=== PATIENT | female | born 1940 | race Caucasian/White ===

== ENCOUNTER 2018-08-10 11:04 | Inpatient (IN) | payer OTHER ==
--- NOTE | 2018-08-10 12:05 | PDOC ---
Attending Attestation - HPI HPI: 08/10/18 12:42 The patient is a 78 year old female with a significant past medical history of IDDM, HTN, HLD who presents to the ED with 4 days of generalized weakness, subjective fevers and chills and increasing shortness of breath. She reports one episode of nonbilious/nonbloody emesis today. She states she has been short of breath for about a month which has been progressively worsening over the past couple of weeks. She states she has not been monitoring her sugars but still administering her insulin. She states she has had a poor appetite. The patient denies chest pain, headache and dizziness. The patient denies nausea , diarrhea and constipation. The patient denies dysuria, frequency, urgency and hematuria. Allergies: NKDA <Felicitas Zavala - Last Filed: 08/10/18 12:42> - Resident Resident Name: Saurabh Rangel - ED Attending Attestation I have performed the following: I have examined & evaluated the patient, The case was reviewed & discussed with the resident, I agree w/resident's findings & plan, Exceptions are as noted - Physicial Exam PE: GENERAL: Awake, alert, and fully oriented, in no acute distress. Tachypneic. HEAD: No signs of trauma EYES: PERRLA, EOMI, sclera anicteric, conjunctiva clear ENT: Auricles normal inspection, hearing grossly normal, nares patent, oropharynx clear without exudates. Moist mucosa NECK: Normal ROM, supple, no lymphadenopathy, JVD, or masses LUNGS: Dec breath sounds at R base. Tachypneic. Good air entry L lung alvares. No wheezes. Scattered rhonchi. HEART: Regular rate and rhythm, normal S1 and S2, no murmurs, rubs or gallops ABDOMEN: Soft, nontender, normoactive bowel sounds. No guarding, no rebound. No masses EXTREMITIES: Normal range of motion, no edema. No clubbing or cyanosis. No cords, erythema, or tenderness NEUROLOGICAL: Cranial nerves II through XII grossly intact. Normal speech. Motor and sensation intact SKIN: Warm, Dry, normal turgor, no rashes or lesions noted. - Medical Decision Making Pt with symptomatic pleural effusion, unclear etiology. Attempted drainage in ED but unsuccessful due to large body habitus and poor landmarks. Will admit. <Angela Handley - Last Filed: 08/12/18 10:22> Attestations - Attestations 08/10/18 12:43 Documentation prepared by Felicitas Zavala, acting as medical resident for Angela Handley MD <Felicitas Zavala - Last Filed: 08/10/18 12:42> Procedures - Additional Procedures Additional Procedures: other Progress: 08/10/18 17:26 Attempted placement of pigtail to drain pleural effusion that was resulting in hypoxia. Patient has large body habitus, so ultrasound was used initially to verify anatomy. Area was prepped with chloraprep, draped with sterile drape. Lidocaine local anesthesia. Needle was advanced until contact with rib, then walked up and over. Straw-colored fluid was obtained. Wire was advanced without difficulty. Attempted to dilate, however, it was very difficult to advance the dilator. At this point, it was aborted, as the dilator would not pass (likely due to body habitus). Wire was kept in place. Attempted to remove the fluid instead with a simple thoracentesis kit, however, as the needle was advanced, the fluid was blood-tinged. All attempts were aborted at this point. <Angela Handley - Last Filed: 08/12/18 10:22>
--- NOTE | 2018-08-10 12:36 | PDOC ---
History of Present Illness - General Chief Complaint: Cold Symptoms Stated Complaint: COLD SYMPTOMS Time Seen by Provider: 08/10/18 12:02 History Source: Patient Exam Limitations: No Limitations - History of Present Illness Initial Comments: 08/10/18 12:29 78 yo female pmh of IDDM, HTN, HLD presents to the ED with 4 days of generalized weakness, fevers and chills and worsening SOB. Pt states she may have eaten overdue eggs Monday which may have caused her symptoms, had 1 episode of NB/NB vomiting. Pt admits to over 2 months of exertional SOB with bilateral lower limb edema, denies hx of asthma, COPD or ever requiring home O2. Pt also notes she does not check her BS frequently and has had a poor appetite. Denies abdominal pain, back pain, changes in bowel or bladder habits, recent travel, sick contacts, calf tenderness. Past History - Past Medical History Allergies/Adverse Reactions: Allergies Allergy/AdvReac Type Severity Reaction Status Date / Time No Known Allergies Allergy Verified 08/10/18 11:14 Home Medications: Ambulatory Orders Aspirin 81 mg PO DAILY 08/10/18 Insulin NPH Hum/Reg Insulin Hm [Novolin 70-30 Flexpen] 0 unit SQ ASDIR 08/10/18 Lisinopril [Prinivil] 20 mg PO DAILY 08/10/18 Nebivolol HCl [Bystolic] 10 mg PO DAILY 08/10/18 COPD: No Diabetes: Yes (IDDM) HTN: Yes Hypercholesterolemia: Yes - Immunization History Immunization Up to Date: No - Suicide/Smoking/Psychosocial Hx Smoking History: Never smoked Hx Alcohol Use: No Drug/Substance Use Hx: No Review of Systems - Review of Systems Constitutional: Yes: Chills, Fever Respiratory: Yes: SOB with Exertion Cardiac (ROS): No: Chest Pain ABD/GI: No: Nausea, Vomiting : No: Burning, Dysuria, Discharge Musculoskeletal: No: Back Pain *Physical Exam - Vital Signs Last Vital Signs Temp Pulse Resp BP Pulse Ox 98.0 F 62 22 H 185/59 H 95 08/10/18 11:12 08/10/18 11:46 08/10/18 11:46 08/10/18 11:46 08/10/18 11:46 - Physical Exam General Appearance: Yes: Nourished, Appropriately Dressed, Apparent Distress ( on 3L NC ) HEENT: positive: EOMI Neck: positive: Supple Respiratory/Chest: positive: Crackles (bilateral lower quadrant). negative: Normal Breath Sounds, Respiratory Distress, Accessory Muscle Use Cardiovascular: positive: Regular Rhythm, Regular Rate, S1, S2, Edema ( bilateral 2+ pitting). negative: JVD, Murmur Vascular Pulses: Dorsalis-Pedis (R): 4+, Doralis-Pedis (L): 4+ Gastrointestinal/Abdominal: positive: Normal Bowel Sounds, Soft. negative: Distended, Guarding, Rebound, Tenderness Musculoskeletal: negative: CVA Tenderness Extremity: positive: Normal Capillary Refill. negative: Coldness, Cyanosis Integumentary: positive: Normal Color, Dry, Warm Neurologic: positive: Fully Oriented, Alert, Normal Mood/Affect, Normal Response Moderate Sedation - Procedure Monitoring Vital Signs: Procedure Monitoring Vital Signs Temperature 98.0 F 08/10/18 11:12 Pulse Rate 62 08/10/18 11:46 Respiratory Rate 22 H 08/10/18 11:46 Blood Pressure 185/59 H 08/10/18 11:46 O2 Sat by Pulse Oximetry (%) 95 08/10/18 11:46 ED Treatment Course - LABORATORY CBC & Chemistry Diagram: 08/10/18 12:27 08/10/18 19:07 - RADIOLOGY Radiology Studies Ordered: Category Date Time Status CHEST X-RAY PORTABLE* [RAD] Stat Radiology 08/10/18 12:03 Ordered Medical Decision Making - Medical Decision Making 08/10/18 19:56 78 yo female presents to the ED with over 1 month of worsening SOB on exertion. Vitals 168/88 86% RA, with 3L pt improved to 98 98 temp 66 HR 16 RR CMP shows 6.6 potassium, Renal consulted and states it is likely due to lisinopril recently started CXR shows right lower lobe fluid BNP 1500s Pt likely has new onset CHF and is symptomatic Pigtail cath indicated Pigtail attempted. Pleural fluid drawn from right mid ax line, 5th rib but difficulty met when attempting to pass dilator. Elected to perform pleural tap for symptomatic relief by following guide wire but with advancement, bright pulsitile blood noted in syringe. Needle taken out, compression held and IR consulted. Dr. Nazario states that due to location, very difficult to embolize artery and it will likely tampanode itself. States a CTA chest is indicated and close management for signs of hypotension. Son signed consent for for procedural sedation, pigtail catheter and Contrast study for CTA (low GFR). Made aware of all risks, benefits and alternatives to procedures and all questions answered. CT surgery () aware of pt, states that there only appears to be 700ml of fluid, likely non hemorrhagic in appearance. States if CTA shows extravagation then pt will need to be transferred to tertiary hospital for management Pt stable, not hypotensive in the ED and is Sating 99% on 5L NC ICU aware and accept pt Dr. Paiz aware of pt (told by Dr. Heaven rutherford to admit to hospitalist at this time ) and aware she will be in the ICU 08/10/18 20:[address] Barrera in radiology who states fluid appears non hemorrhagic but another CT would be indicated to assess for increasing fluid *DC/Admit/Observation/Transfer Diagnosis at time of Disposition: Pleural effusion, CHF (congestive heart failure) - Discharge Dispostion Decision to Admit order: Yes - Referrals - Patient Instructions - Post Discharge Activity
[2018-08-10 12:54] LABS: BASO % 0.9 % (0-2.0); EOS % 0.3 % (0-4.5); HEMATOCRIT 33.7 % (32.4-45.2); HEMOGLOBIN 10.8 GM/dL (10.7-15.3); LYMPH % 18.1 % (8-40); MCH 29.3 pg (25.7-33.7); MEAN CELL VOLUME 91.7 fl (80-96); MEAN PLT VOLUME 9.2 fl (7.5-11.1); MONO % 11.7 % (3.8-10.2); PLATELET COUNT 230 K/MM3 (134-434); RBC 3.68 M/mm3 (3.60-5.2); RDW 14.7 % (11.6-15.6); WHITE BLOOD COUNT 9.5 K/mm3 (4.0-10.0)
[2018-08-10 13:24] LABS: ALBUMIN 3.4 g/dl (3.4-5.0); ALK PHOS 118 U/L (45-117); ANION GAP 6 MMOL/L (8-16); BILIRUBIN,TOTAL 0.5 mg/dL (0.2-1); BLOOD UREA NITROGEN 32 mg/dL (7-18); CALCIUM 8.4 mg/dL (8.5-10.1); CHLORIDE 107 mmol/L (98-107); CO2 26 mmol/L (21-32); CREATININE 1.5 mg/dL (0.55-1.3); GLUCOSE,RANDOM 154 mg/dL (74-106); SGOT/AST 23 U/L (15-37); SGPT/ALT 19 U/L (13-61); SODIUM 139 mmol/L (136-145); TOT PROT 7.3 g/dl (6.4-8.2)
[2018-08-10 13:27] LABS: POTASSIUM 6.7 mmol/L (3.5-5.1)
[2018-08-10 13:43] LABS: URINE APPEARANCE CLEAR; URINE BILIRUBIN NEGATIVE (<2.0 mg/dL); URINE COLOR YELLOW; URINE GLUCOSE (UA) NEGATIVE (NEGATIVE); URINE KETONE NEGATIVE (NEGATIVE); URINE LEUK ESTERASE NEGATIVE (NEGATIVE); URINE NITRITE NEGATIVE (NEGATIVE); URINE PROTEIN 2+ (NEGATIVE); URINE UROBILINOGEN NEGATIVE mg/dL (0.2-1.0)
[2018-08-10 14:41] LABS: EPI CELLS RARE /HPF (FEW); URINE HYALINE CAST 5 /lpf
[2018-08-10 15:12] LABS: ALBUMIN 3.5 g/dl (3.4-5.0); ALK PHOS 126 U/L (45-117); ANION GAP 3 MMOL/L (8-16); BILIRUBIN,TOTAL 0.5 mg/dL (0.2-1); BLOOD UREA NITROGEN 32 mg/dL (7-18); CHLORIDE 105 mmol/L (98-107); CO2 30 mmol/L (21-32); CREATININE 1.5 mg/dL (0.55-1.3); GLUCOSE,RANDOM 147 mg/dL (74-106); SGOT/AST 17 U/L (15-37); SGPT/ALT 19 U/L (13-61); SODIUM 138 mmol/L (136-145); TOT PROT 7.6 g/dl (6.4-8.2)
[2018-08-10 15:18] LABS: POTASSIUM 6.6 mmol/L (3.5-5.1)
[2018-08-10] MEDS ORDERED: INSULIN REGULAR HUMAN 100 UNITS/ML *VIAL IVPUSH ONE (15:32)
[2018-08-10] MEDS ORDERED: ALBUTEROL SO4 0.5 % INH SOLN 2.5 MG/0.5 ML VIAL.NEB. NEB ONE (15:38)
[2018-08-10] MEDS ORDERED: DEXTROSE 50%-WATER - 25 GM/50 ML VIAL IVPUSH ONE ×2 (15:39→15:44)
[2018-08-10] MEDS ORDERED: SODIUM BICARBONATE 8.4% 50 MEQ/50 ML DISP.SYRIN IVPUSH ONE (15:42)
[2018-08-10] MEDS ORDERED: SODIUM POLYSTYRENE SULFONATE 15 GM/60 ML BOTTLE PO ONE (15:45)
[2018-08-10] MEDS ORDERED: SODIUM BICARBONATE 8.4% - 50 ML ONE (15:46)
[2018-08-10] MEDS ORDERED: INSULIN REGULAR HUMAN 100 UNITS/ML *VIAL ONE (15:47)
[2018-08-10] MEDS ORDERED: DEXTROSE 50%-WATER - 25 GM/50 ML VIAL ONE (15:49)
[2018-08-10] MEDS ORDERED: ALBUTEROL SO4 0.083% IH SOL 2.5 MG/3 ML VIAL.NEB. NEB ONE (15:49)
[2018-08-10] MEDS ORDERED: SODIUM POLYSTYRENE SULFONATE 15 GM/60 ML BOTTLE ONE (16:07)
[2018-08-10] MEDS ORDERED: PROPOFOL 200 MG/20 ML VIAL IVPUSH ONE (16:27)
--- NOTE | 2018-08-10 18:08 | CONSULT ---
Consult Consult Specialty:: Nephrology Reason for Consultation:: hyperkalemia - History of Present Illness Chief Complaint: shortness of breath History of Present Illness: Pt is a 78 year old female with pmhx of HTN, DM, hyperlipidemia and fatty liver. She presents to the ER with generalized weakness and shortness of breath on ambulation that began about 5 days ago. She is accompanied by her son who assisted with history. She described a viral syndrome that she had on Monday where she had an episode of vomiting and an episode of diarrhea. She was able to tolerate diet since Monday. Pt denies history of CKD. She was found to be hyperkalemic in the ER and I was called to evaluate her. She was on lisinopril 20 mg daily at home. She denies chest pain or palpitations. She was also found to have a right pleural effusion. She denies nsaid use. Pt was also on 25 of hctz. Pt son assisted with meds. - History Source History Provided By: Patient, Family Member, Medical Record - Past Medical History Cardio/Vascular: Yes: HTN Hepatobiliary: Yes: Other (fatty liver) Endocrine: Yes: Diabetes Mellitus - Alcohol/Substance Use Hx Alcohol Use: No - Smoking History Smoking history: Never smoked Home Medications - Allergies Allergies/Adverse Reactions: Allergies Allergy/AdvReac Type Severity Reaction Status Date / Time No Known Allergies Allergy Verified 08/10/18 11:14 - Home Medications Home Medications: Ambulatory Orders Aspirin 81 mg PO DAILY 08/10/18 Insulin NPH Hum/Reg Insulin Hm [Novolin 70-30 Flexpen] 0 unit SQ ASDIR 08/10/18 Lisinopril [Prinivil] 20 mg PO DAILY 08/10/18 Nebivolol HCl [Bystolic] 10 mg PO DAILY 08/10/18 Family Disease History - Family Disease History Family Disease History: Other: Father (laryngeal cancer) Review of Systems - Review of Systems Constitutional: reports: Chills, Loss of Appetite, Weakness Eyes: reports: No Symptoms HENT: reports: No Symptoms Neck: reports: No Symptoms Cardiovascular: reports: No Symptoms. denies: Chest Pain, Palpitations Respiratory: reports: SOB, SOB on Exertion Gastrointestinal: reports: No Symptoms Genitourinary: reports: No Symptoms Musculoskeletal: reports: No Symptoms Integumentary: reports: No Symptoms Neurological: reports: No Symptoms Endocrine: reports: No Symptoms Hematology/Lymphatic: reports: No Symptoms Psychiatric: reports: No Symptoms Physical Exam Vital Signs: Vital Signs Temperature 98.0 F 08/10/18 11:12 Pulse Rate 60 08/10/18 15:02 Respiratory Rate 22 H 08/10/18 15:02 Blood Pressure 177/65 H 08/10/18 15:02 O2 Sat by Pulse Oximetry (%) 94 L 08/10/18 15:02 Constitutional: Yes: Calm Eyes: Yes: Conjunctiva Clear HENT: Yes: Atraumatic Neck: Yes: Supple Cardiovascular: Yes: S1, S2 Respiratory: Yes: On Venti-Mask, Other (decreased right lung sounds) Gastrointestinal: Yes: Soft, Abdomen, Obese Renal/: Yes: WNL Musculoskeletal: Yes: WNL Edema: No Neurological: Yes: Oriented Psychiatric: Yes: Oriented Labs: CBC, BMP 08/10/18 12:27 08/10/18 14:21 Laboratory Tests 08/10/18 08/10/18 08/10/18 12:00 12:27 12:27 Sodium 139 Potassium 6.7 H* BUN 32 H Creatinine 1.5 H Random Glucose 154 H Alkaline Phosphatase B-Natriuretic Peptide 1552.0 H Urine Color Yellow Urine Protein 2+ H Urine Blood Negative Influenza A (Rapid) Negative Influenza B (Rapid) Negative 08/10/18 14:21 Sodium 138 Potassium 6.6 H* BUN 32 H Creatinine 1.5 H Random Glucose 147 H Alkaline Phosphatase 126 H B-Natriuretic Peptide Urine Color Urine Protein Urine Blood Influenza A (Rapid) Influenza B (Rapid) Imaging - Results Chest X-ray: Report Reviewed Problem List - Problems (1) Hyperkalemia Code(s): E87.5 - HYPERKALEMIA (2) Diabetes mellitus Code(s): E11.9 - TYPE 2 DIABETES MELLITUS WITHOUT COMPLICATIONS (3) HTN (hypertension) Code(s): I10 - ESSENTIAL (PRIMARY) HYPERTENSION Assessment/Plan Laboratory Tests 08/10/18 12:27 B-Natriuretic Peptide 1552.0 H Impression 1. hyperkalemia 2. ckd vs dona - unclear baseline dam attendant 3. pleural effusion 4. htn 5. DM 6. hx fatty liver Plan - potassium treated medically in ER - follow repeat bmp - stop lininopril for now - follow ct scan of the chest - agree with ICU admission - monitor pulse ox - can give lasix instead of thiazide - keep on tele monitor - pulmonary eval
--- NOTE | 2018-08-10 19:42 | CONSULT ---
Consultation: REQUESTING PROVIDER: CONSULT REQUEST: We have been asked to medically evaluate this patient for ( specify). HISTORY OF PRESENT ILLNESS: REVIEW OF SYSTEMS: CONSTITUTIONAL: Absent: fever, chills, diaphoresis, generalized weakness, malaise, loss of appetite, weight change HEENT: Absent: rhinorrhea, nasal congestion, throat pain, throat swelling, difficulty swallowing, mouth swelling, ear pain, eye pain, visual changes CARDIOVASCULAR: Absent: chest pain, syncope, palpitations, irregular heart rate, lightheadedness , peripheral edema RESPIRATORY: Absent: cough, shortness of breath, dyspnea with exertion, orthopnea, wheezing, stridor, hemoptysis GASTROINTESTINAL: Absent: abdominal pain, abdominal distension, nausea, vomiting, diarrhea, constipation, melena, hematochezia GENITOURINARY: Absent: dysuria, frequency, urgency, hesitancy, hematuria, flank pain, genital pain MUSCULOSKELETAL: Absent: myalgia, arthralgia, joint swelling, back pain, neck pain SKIN: Absent: rash, itching, pallor HEMATOLOGIC/IMMUNOLOGIC: Absent: easy bleeding, easy bruising, lymphadenopathy, frequent infections ENDOCRINE: Absent: unexplained weight gain, unexplained weight loss, heat intolerance, cold intolerance NEUROLOGIC: Absent: headache, focal weakness or paresthesias, dizziness, unsteady gait, seizure, mental status changes, bladder or bowel incontinence PSYCHIATRIC: Absent: anxiety, depression, suicidal or homicidal ideation, hallucinations. PHYSICAL EXAMINATION Vital Signs - 24 hr 08/10/18 08/10/18 08/10/18 11:12 11:46 15:02 Temperature 98.0 F Pulse Rate 66 Pulse Rate [ 62 60 Apical] Pulse Rate [ Left Upper Arm] Respiratory 16 22 H 22 H Rate Respiratory Rate [Left Upper Arm] Blood Pressure 168/48 L Blood Pressure [Left Upper Arm ] Blood Pressure 185/59 H 177/65 H [Right Arm] O2 Sat by Pulse 86 L 95 94 L Oximetry (%) O2 Sat by Pulse Oximetry (%) [ Left Upper Arm] 08/10/18 08/10/18 08/10/18 16:35 16:45 16:55 Temperature Pulse Rate Pulse Rate [ 66 Apical] Pulse Rate [ 77 75 Left Upper Arm] Respiratory Rate Respiratory 20 18 Rate [Left Upper Arm] Blood Pressure Blood Pressure 133/86 170/64 [Left Upper Arm ] Blood Pressure 138/64 [Right Arm] O2 Sat by Pulse 100 Oximetry (%) O2 Sat by Pulse 94 L Oximetry (%) [ Left Upper Arm] 08/10/18 08/10/18 17:05 19:28 Temperature Pulse Rate Pulse Rate [ 67 70 Apical] Pulse Rate [ Left Upper Arm] Respiratory 22 H 80 H Rate Respiratory Rate [Left Upper Arm] Blood Pressure Blood Pressure [Left Upper Arm ] Blood Pressure 156/87 152/58 L [Right Arm] O2 Sat by Pulse 100 94 L Oximetry (%) O2 Sat by Pulse Oximetry (%) [ Left Upper Arm] GENERAL: Awake, alert, and fully oriented, in no acute distress. HEAD: Normal with no signs of trauma. EYES: Pupils equal, round and reactive to light, extraocular movements intact, sclera anicteric, conjunctiva clear. No lid lag. EARS, NOSE, THROAT: Ears normal, nares patent, oropharynx clear without exudates. Moist mucous membranes. NECK: Normal range of motion, supple without lymphadenopathy, JVD, or masses. LUNGS: Breath sounds equal, clear to auscultation bilaterally. No wheezes, and no crackles. No accessory muscle use. HEART: Regular rate and rhythm, normal S1 and S2 without murmur, rub or gallop. ABDOMEN: Soft, nontender, not distended, normoactive bowel sounds, no guarding, no rebound, no masses. No hepatomegaly or splenomegaly. MUSCULOSKELETAL: Normal range of motion at all joints. No bony deformities or tenderness. No CVA tenderness. UPPER EXTREMITIES: 2+ pulses, warm, well-perfused. No cyanosis. No clubbing. Cap refill <2 seconds. No peripheral edema. LOWER EXTREMITIES: 2+ pulses, warm, well-perfused. No calf tenderness. No peripheral edema. NEUROLOGICAL: Cranial nerves II-XII intact. Normal speech. Normal gait. PSYCHIATRIC: Cooperative. Good eye contact. Appropriate mood and affect. SKIN: Warm, dry, normal turgor, no rashes or lesions noted. Laboratory Results - last 24 hr 08/10/18 08/10/18 08/10/18 12:00 12:27 12:27 WBC 9.5 RBC 3.68 Hgb 10.8 Hct 33.7 MCV 91.7 MCH 29.3 MCHC 32.0 RDW 14.7 Plt Count 230 MPV 9.2 Absolute Neuts (auto) 6.6 Neutrophils % 69.0 Lymphocytes % 18.1 Monocytes % 11.7 H Eosinophils % 0.3 Basophils % 0.9 Nucleated RBC % 0 Sodium Potassium Chloride Carbon Dioxide Anion Gap BUN Creatinine Creat Clearance w eGFR Random Glucose Lactic Acid Calcium Total Bilirubin AST ALT Alkaline Phosphatase Creatine Kinase Troponin I B-Natriuretic Peptide Total Protein Albumin Urine Color Yellow Urine Appearance Clear Urine pH 6.0 Ur Specific [place] 1.014 Urine Protein 2+ H Urine Glucose (UA) Negative Urine Ketones Negative Urine Blood Negative Urine Nitrite Negative Urine Bilirubin Negative Urine Urobilinogen Negative Ur Leukocyte Esterase Negative Urine WBC (Auto) <1 Urine RBC (Auto) <1 Ur Epithelial Cells Rare Hyaline Casts 5 Influenza A (Rapid) Negative Influenza B (Rapid) Negative 08/10/18 08/10/18 08/10/18 12:27 13:21 14:21 WBC RBC Hgb Hct MCV MCH MCHC RDW Plt Count MPV Absolute Neuts (auto) Neutrophils % Lymphocytes % Monocytes % Eosinophils % Basophils % Nucleated RBC % Sodium 139 138 Potassium 6.7 H* 6.6 H* Chloride 107 105 Carbon Dioxide 26 30 Anion Gap 6 L 3 L BUN 32 H 32 H Creatinine 1.5 H 1.5 H Creat Clearance w eGFR 33.76 33.76 Random Glucose 154 H 147 H Lactic Acid 1.6 Calcium 8.4 L 9.0 Total Bilirubin 0.5 0.5 AST 23 17 ALT 19 19 Alkaline Phosphatase 118 H 126 H Creatine Kinase 72 Troponin I < 0.02 B-Natriuretic Peptide 1552.0 H Total Protein 7.3 7.6 Albumin 3.4 3.5 Urine Color Urine Appearance Urine pH Ur Specific [place] Urine Protein Urine Glucose (UA) Urine Ketones Urine Blood Urine Nitrite Urine Bilirubin Urine Urobilinogen Ur Leukocyte Esterase Urine WBC (Auto) Urine RBC (Auto) Ur Epithelial Cells Hyaline Casts Influenza A (Rapid) Influenza B (Rapid) Active Medications Generic Name Dose Route Start Last Admin Trade Name Freq PRN Reason Stop Dose Admin Chlorhexidine Gluconate 1 applic 08/10/18 22:00 Hibiclens For Decolonization - TP HS [facility] Heparin Sodium (Porcine) 5,000 unit 08/11/18 06:00 Heparin - SQ TID [facility] Mupirocin 1 applic 08/10/18 22:00 Bactroban Ointment (For Decolonization) - NS 08/15/18 21:59 BID [facility] ASSESSMENT/PLAN: Dispo: We will continue to follow the patient. Thank you for this consultative opportunity.
--- NOTE | 2018-08-10 19:52 | HP ---
Admitting History and Physical - Primary Care Physician PCP: Sho Duarte - Admission Chief Complaint: SOB, Generalized Weakness History of Present Illness: This is a 78 y/o woman with a PMHx of HTN, DM, Hyperlipidemia, Fatty Liver. Who presents to the ED with generalized weakness and shortness of breath on ambulation that began about 5 days ago. She is accompanied by her son who assisted with history. She described a viral syndrome that she had on Monday where she had an episode of vomiting and an episode of diarrhea. She was able to tolerate diet since Monday. Pt denies history of CKD. She was found to be hyperkalemic in the ER and I was called to evaluate her. She was on lisinopril 20 mg daily at home. She denies chest pain or palpitations. She was also found to have a right pleural effusion. She denies nsaid use. Pt was also on 25 of hctz. Pt son assisted with meds. History Source: Family Member Limitations to Obtaining History: Clinical Condition - Past Medical History Cardiovascular: Yes: HTN, Hyperlipdemia Hepatobiliary: Yes: Other (fatty liver) Endocrine: Yes: Diabetes Mellitus - Smoking History Smoking history: Never smoked - Alcohol/Substance Use Hx Alcohol Use: No History of Substance Use: reports: None - Social History Usual Living Arrangement: Yes: With Child ADL: Family Assistance History of Recent Travel: No Home Medications - Allergies Allergies/Adverse Reactions: Allergies Allergy/AdvReac Type Severity Reaction Status Date / Time No Known Allergies Allergy Verified 08/10/18 11:14 - Home Medications Home Medications: Ambulatory Orders Aspirin 81 mg PO DAILY 08/10/18 Insulin NPH Hum/Reg Insulin Hm [Novolin 70-30 Flexpen] 0 unit SQ ASDIR 08/10/18 Lisinopril [Prinivil] 20 mg PO DAILY 08/10/18 Nebivolol HCl [Bystolic] 10 mg PO DAILY 08/10/18 Family Disease History - Family Disease History Family Disease History: Other: Father (laryngeal cancer) Review of Systems - Review of Systems Constitutional: reports: Weakness Eyes: reports: No Symptoms HENT: reports: No Symptoms Neck: reports: No Symptoms Cardiovascular: reports: Shortness of Breath Respiratory: reports: SOB, SOB on Exertion Gastrointestinal: reports: No Symptoms Genitourinary: reports: No Symptoms Breasts: reports: No Symptoms Reported Musculoskeletal: reports: No Symptoms Integumentary: reports: No Symptoms Neurological: reports: No Symptoms Endocrine: reports: No Symptoms Hematology/Lymphatic: reports: No Symptoms Psychiatric: reports: No Symptoms Physical Examination Vital Signs: Vital Signs Temperature 98.0 F 08/10/18 11:12 Pulse Rate 70 08/10/18 19:28 Respiratory Rate 80 H 08/10/18 19:28 Blood Pressure 152/58 L 08/10/18 19:28 O2 Sat by Pulse Oximetry (%) 94 L 08/10/18 19:28 Constitutional: Yes: No Distress, Calm Eyes: Yes: WNL, Conjunctiva Clear, EOM Intact, PERRL HENT: Yes: WNL, Atraumatic, Normocephalic Neck: Yes: WNL, Supple, Trachea Midline Cardiovascular: Yes: WNL, Regular Rate and Rhythm, S1, S2 Respiratory: Yes: Diminished, On Nasal O2, SOB, SOB on Exertion Gastrointestinal: Yes: WNL, Normal Bowel Sounds, Soft, Abdomen, Obese Renal/: Yes: WNL Breast(s): Yes: WNL Musculoskeletal: Yes: WNL Extremities: Yes: WNL Edema: No Peripheral Pulses WNL: Yes Neurological: Yes: WNL, Alert, Oriented, Cran Nerves II-XII Intact ...Motor Strength: WNL Psychiatric: Yes: WNL, Alert, Oriented Labs: CBC, BMP 08/10/18 12:27 Laboratory Results - last 24 hr 08/10/18 08/10/18 08/10/18 12:00 12:27 12:27 WBC 9.5 RBC 3.68 Hgb 10.8 Hct 33.7 MCV 91.7 MCH 29.3 MCHC 32.0 RDW 14.7 Plt Count 230 MPV 9.2 Absolute Neuts (auto) 6.6 Neutrophils % 69.0 Lymphocytes % 18.1 Monocytes % 11.7 H Eosinophils % 0.3 Basophils % 0.9 Nucleated RBC % 0 Sodium Potassium Chloride Carbon Dioxide Anion Gap BUN Creatinine Creat Clearance w eGFR POC Glucometer Random Glucose Lactic Acid Calcium Total Bilirubin AST ALT Alkaline Phosphatase Creatine Kinase Troponin I B-Natriuretic Peptide Total Protein Albumin Urine Color Yellow Urine Appearance Clear Urine pH 6.0 Ur Specific [place] 1.014 Urine Protein 2+ H Urine Glucose (UA) Negative Urine Ketones Negative Urine Blood Negative Urine Nitrite Negative Urine Bilirubin Negative Urine Urobilinogen Negative Ur Leukocyte Esterase Negative Urine WBC (Auto) <1 Urine RBC (Auto) <1 Ur Epithelial Cells Rare Hyaline Casts 5 Influenza A (Rapid) Negative Influenza B (Rapid) Negative 08/10/18 08/10/18 08/10/18 12:27 13:21 14:21 WBC RBC Hgb Hct MCV MCH MCHC RDW Plt Count MPV Absolute Neuts (auto) Neutrophils % Lymphocytes % Monocytes % Eosinophils % Basophils % Nucleated RBC % Sodium 139 138 Potassium 6.7 H* 6.6 H* Chloride 107 105 Carbon Dioxide 26 30 Anion Gap 6 L 3 L BUN 32 H 32 H Creatinine 1.5 H 1.5 H Creat Clearance w eGFR 33.76 33.76 POC Glucometer Random Glucose 154 H 147 H Lactic Acid 1.6 Calcium 8.4 L 9.0 Total Bilirubin 0.5 0.5 AST 23 17 ALT 19 19 Alkaline Phosphatase 118 H 126 H Creatine Kinase 72 Troponin I < 0.02 B-Natriuretic Peptide 1552.0 H Total Protein 7.3 7.6 Albumin 3.4 3.5 Urine Color Urine Appearance Urine pH Ur Specific [place] Urine Protein Urine Glucose (UA) Urine Ketones Urine Blood Urine Nitrite Urine Bilirubin Urine Urobilinogen Ur Leukocyte Esterase Urine WBC (Auto) Urine RBC (Auto) Ur Epithelial Cells Hyaline Casts Influenza A (Rapid) Influenza B (Rapid) 08/10/18 08/10/18 19:07 21:10 WBC RBC Hgb Hct MCV MCH MCHC RDW Plt Count MPV Absolute Neuts (auto) Neutrophils % Lymphocytes % Monocytes % Eosinophils % Basophils % Nucleated RBC % Sodium 141 Potassium 5.1 Chloride 107 Carbon Dioxide 28 Anion Gap 6 L BUN 32 H Creatinine 1.4 H Creat Clearance w eGFR 36.56 POC Glucometer 203 Random Glucose 179 H Lactic Acid Calcium 8.1 L Total Bilirubin 0.5 AST 15 ALT 16 Alkaline Phosphatase 112 Creatine Kinase Troponin I B-Natriuretic Peptide Total Protein 6.9 Albumin 3.1 L Urine Color Urine Appearance Urine pH Ur Specific [place] Urine Protein Urine Glucose (UA) Urine Ketones Urine Blood Urine Nitrite Urine Bilirubin Urine Urobilinogen Ur Leukocyte Esterase Urine WBC (Auto) Urine RBC (Auto) Ur Epithelial Cells Hyaline Casts Influenza A (Rapid) Influenza B (Rapid) Current Medications Generic Name Dose Route Start Last Admin Trade Name Freq PRN Reason Stop Dose Admin Chlorhexidine Gluconate 1 applic 08/10/18 22:00 08/10/18 21:32 Hibiclens For Decolonization - TP 1 applic HS DEREK Administration Heparin Sodium (Porcine) 5,000 unit 08/11/18 06:00 08/11/18 06:08 Heparin - SQ 5,000 unit TID DEREK Administration Sodium Chloride 1,000 mls @ 75 mls/hr 08/10/18 20:45 08/10/18 21:30 Normal Saline - IV 75 mls/hr ASDIR DEREK Administration Insulin Aspart 1 vial 08/10/18 21:00 08/11/18 02:49 Novolog Vial Sliding Scale - SQ 4 units Q6H DEREK Administration Protocol Mupirocin 1 applic 08/10/18 22:00 08/10/18 21:31 Bactroban Ointment (For Decolonization) - NS 08/15/18 21:59 1 applic BID DEREK Administration Nebivolol 10 mg 08/11/18 10:00 Bystolic - PO DAILY DEREK Imaging - Results Chest X-ray: Report Reviewed, Image Reviewed Cat Scan: Report Reviewed, Image Reviewed EKG: Image Reviewed Problem List - Problems (1) Pleural effusion Code(s): J90 - PLEURAL EFFUSION, NOT ELSEWHERE CLASSIFIED (2) CHF (congestive heart failure) Code(s): I50.9 - HEART FAILURE, UNSPECIFIED (3) Hyperkalemia Code(s): E87.5 - HYPERKALEMIA (4) CYNTHIA (acute kidney injury) Code(s): N17.9 - ACUTE KIDNEY FAILURE, UNSPECIFIED (5) Diabetes mellitus Code(s): E11.9 - TYPE 2 DIABETES MELLITUS WITHOUT COMPLICATIONS (6) HTN (hypertension) Code(s): I10 - ESSENTIAL (PRIMARY) HYPERTENSION Assessment/Plan This is a 78 y/o woman PMHx of HTN, HLD, DM, Fatty Liver admitted to ICU for Pleural Effusion, CHF, Hyperkalemia, CYNTHIA for further evaluation of their emergent condition Plan: 1. Pulmonary: Pleural Effusion CHF Admit ICU Cardiac monitoring O2 Chest Xray- Moderate Right and Left Pleural Effusions Will need pleural cath placed- unsuccessful in ED Appreciate Pulmonology consult 2. Cardiovascular: Hyperkalemia HTN HLD Likely secondary to CYNTHIA Hyperkalemic Protocol given in ED K- 6.7~6.6 now 5.1 EKG reviewed no peaked T waves Calcium corrected 8.8 Monitor BMP Consider Cardiology consult Hold Lisinopril Continue Bystolic with parameters 3. Nephro: CYNTHIA Cr 1.5 Nephrology following Hold Lisinopril Monitor BMP 4. Endocrine: Diabetes Mellitus stable BGMs ISS with meals Monitor renal function 5. GI: Fatty Liver Continue to monitor and treat with interventions accordingly FEN Replete lytes prn NPO after midnight DVT ppx OOB SCDs Heparin SQ Dispo: Requires Inpatient Care 3. Visit type - Emergency Visit Emergency Visit: Yes ED Registration Date: 08/10/18 Care time: The patient presented to the Emergency Department on the above date and was hospitalized for further evaluation of their emergent condition. - New Patient This patient is new to me today: Yes Date on this admission: 08/10/18 - Critical Care Critical Care patient: Yes Total Critical Care Time (in minutes): 32 Critical Care Statement: The care of this patient involved high complexity decision making to prevent further life threatening deterioration of the patient 's condition and/or to evaluate & treat vital organ system(s) failure or risk of failure.
[2018-08-10 20:00] LABS: ALBUMIN 3.1 g/dl (3.4-5.0); ALK PHOS 112 U/L (45-117); ANION GAP 6 MMOL/L (8-16); BILIRUBIN,TOTAL 0.5 mg/dL (0.2-1); BLOOD UREA NITROGEN 32 mg/dL (7-18); CALCIUM 8.1 mg/dL (8.5-10.1); CHLORIDE 107 mmol/L (98-107); CO2 28 mmol/L (21-32); CREATININE 1.4 mg/dL (0.55-1.3); GLUCOSE,RANDOM 179 mg/dL (74-106); POTASSIUM 5.1 mmol/L (3.5-5.1); SGOT/AST 15 U/L (15-37); SGPT/ALT 16 U/L (13-61); SODIUM 141 mmol/L (136-145); TOT PROT 6.9 g/dl (6.4-8.2)
--- NOTE | 2018-08-10 20:15 | CONSULT ---
Consultation: REQUESTING PROVIDER: Dr. Handley CONSULT REQUEST: We have been asked to medically evaluate this patient for frequent monitoring of possible hematoma. HISTORY OF PRESENT ILLNESS: 78 year old palestinian-speaking female with a history of diabetes, hypertension, hyperlipidemia and fatty liver who came to the emergency room with SOB on exertion beginning 5 days ago. Patient's son reported to me that she felt badly on Monday, when she vomited once but was able to tolerate diet since Monday. He reported to me, however, that she has had progressive shortness of breath on exertion for more than 2 weeks. Patient has not had a history of cancer or CHF. Patient denies orthopnea or swelling in her legs. Denies sick contacts or recent travel. Denies ever smoking or drinking alcohol. In ED, patient was found to have a large right sided pleural effusion, which they subsequently attempted to drain with a pigtail catheter. Following insertion, minimal drainage was obtained and there was some concern of a possible hematoma. The pigtail was removed and she received a CTA. Additionally, in the ED patient was hyperkalemic to >6 and treated. with insulin /D50. When I examined patient, she denied any symptoms of chest pain, shortness of breath, nausea, vomiting, diarrhea,fevers, chills, abdominal pain, palpitations. REVIEW OF SYSTEMS: CONSTITUTIONAL: Absent: fever, chills, diaphoresis, generalized weakness, malaise, loss of appetite, weight change HEENT: Absent: rhinorrhea, nasal congestion, throat pain, throat swelling, difficulty swallowing, mouth swelling, ear pain, eye pain, visual changes CARDIOVASCULAR: Absent: chest pain, syncope, palpitations, irregular heart rate, lightheadedness , peripheral edema RESPIRATORY: Absent: cough, shortness of breath, dyspnea with exertion, orthopnea, wheezing, stridor, hemoptysis GASTROINTESTINAL: Absent: abdominal pain, abdominal distension, nausea, vomiting, diarrhea, constipation, melena, hematochezia GENITOURINARY: Absent: dysuria, frequency, urgency, hesitancy, hematuria, flank pain, genital pain MUSCULOSKELETAL: Absent: myalgia, arthralgia, joint swelling, back pain, neck pain SKIN: Absent: rash, itching, pallor HEMATOLOGIC/IMMUNOLOGIC: Absent: easy bleeding, easy bruising, lymphadenopathy, frequent infections ENDOCRINE: Absent: unexplained weight gain, unexplained weight loss, heat intolerance, cold intolerance NEUROLOGIC: Absent: headache, focal weakness or paresthesias, dizziness, unsteady gait, seizure, mental status changes, bladder or bowel incontinence PSYCHIATRIC: Absent: anxiety, depression, suicidal or homicidal ideation, hallucinations. PHYSICAL EXAMINATION Vital Signs - 24 hr 08/10/18 08/10/18 08/10/18 11:12 11:46 15:02 Temperature 98.0 F Pulse Rate 66 Pulse Rate [ 62 60 Apical] Pulse Rate [ Left Upper Arm] Respiratory 16 22 H 22 H Rate Respiratory Rate [Left Upper Arm] Blood Pressure 168/48 L Blood Pressure [Left Upper Arm ] Blood Pressure 185/59 H 177/65 H [Right Arm] O2 Sat by Pulse 86 L 95 94 L Oximetry (%) O2 Sat by Pulse Oximetry (%) [ Left Upper Arm] 08/10/18 08/10/18 08/10/18 16:35 16:45 16:55 Temperature Pulse Rate Pulse Rate [ 66 Apical] Pulse Rate [ 77 75 Left Upper Arm] Respiratory Rate Respiratory 20 18 Rate [Left Upper Arm] Blood Pressure Blood Pressure 133/86 170/64 [Left Upper Arm ] Blood Pressure 138/64 [Right Arm] O2 Sat by Pulse 100 Oximetry (%) O2 Sat by Pulse 94 L Oximetry (%) [ Left Upper Arm] 08/10/18 08/10/18 17:05 19:28 Temperature Pulse Rate Pulse Rate [ 67 70 Apical] Pulse Rate [ Left Upper Arm] Respiratory 22 H 80 H Rate Respiratory Rate [Left Upper Arm] Blood Pressure Blood Pressure [Left Upper Arm ] Blood Pressure 156/87 152/58 L [Right Arm] O2 Sat by Pulse 100 94 L Oximetry (%) O2 Sat by Pulse Oximetry (%) [ Left Upper Arm] GENERAL: A&Ox3, no acute distress EYES: PERRLA, EOMI ENT: Moist mucus membranes NECK: No JVD LUNGS: decreased breath sounds in the RLL, otherwise clear to auscultation HEART: mildly tachycardic, 1-2+ systolic murmur noted in the 2nd R intercostal space ABDOMEN: Soft, nontender, BS present MUSCULOSKELETAL: No CVA Tenderness, puncture wound from previous pigtail insertion noted on R sided chest wall mid-axillary region EXTREMITIES: 2+ pulses, no edema. NEUROLOGICAL: Cranial nerves II-XII intact. No neurological deficits noted. Laboratory Results - last 24 hr 08/10/18 08/10/18 08/10/18 12:00 12:27 12:27 WBC 9.5 RBC 3.68 Hgb 10.8 Hct 33.7 MCV 91.7 MCH 29.3 MCHC 32.0 RDW 14.7 Plt Count 230 MPV 9.2 Absolute Neuts (auto) 6.6 Neutrophils % 69.0 Lymphocytes % 18.1 Monocytes % 11.7 H Eosinophils % 0.3 Basophils % 0.9 Nucleated RBC % 0 Sodium Potassium Chloride Carbon Dioxide Anion Gap BUN Creatinine Creat Clearance w eGFR Random Glucose Lactic Acid Calcium Total Bilirubin AST ALT Alkaline Phosphatase Creatine Kinase Troponin I B-Natriuretic Peptide Total Protein Albumin Urine Color Yellow Urine Appearance Clear Urine pH 6.0 Ur Specific [place] 1.014 Urine Protein 2+ H Urine Glucose (UA) Negative Urine Ketones Negative Urine Blood Negative Urine Nitrite Negative Urine Bilirubin Negative Urine Urobilinogen Negative Ur Leukocyte Esterase Negative Urine WBC (Auto) <1 Urine RBC (Auto) <1 Ur Epithelial Cells Rare Hyaline Casts 5 Influenza A (Rapid) Negative Influenza B (Rapid) Negative 08/10/18 08/10/18 08/10/18 12:27 13:21 14:21 WBC RBC Hgb Hct MCV MCH MCHC RDW Plt Count MPV Absolute Neuts (auto) Neutrophils % Lymphocytes % Monocytes % Eosinophils % Basophils % Nucleated RBC % Sodium 139 138 Potassium 6.7 H* 6.6 H* Chloride 107 105 Carbon Dioxide 26 30 Anion Gap 6 L 3 L BUN 32 H 32 H Creatinine 1.5 H 1.5 H Creat Clearance w eGFR 33.76 33.76 Random Glucose 154 H 147 H Lactic Acid 1.6 Calcium 8.4 L 9.0 Total Bilirubin 0.5 0.5 AST 23 17 ALT 19 19 Alkaline Phosphatase 118 H 126 H Creatine Kinase 72 Troponin I < 0.02 B-Natriuretic Peptide 1552.0 H Total Protein 7.3 7.6 Albumin 3.4 3.5 Urine Color Urine Appearance Urine pH Ur Specific [place] Urine Protein Urine Glucose (UA) Urine Ketones Urine Blood Urine Nitrite Urine Bilirubin Urine Urobilinogen Ur Leukocyte Esterase Urine WBC (Auto) Urine RBC (Auto) Ur Epithelial Cells Hyaline Casts Influenza A (Rapid) Influenza B (Rapid) 08/10/18 19:07 WBC RBC Hgb Hct MCV MCH MCHC RDW Plt Count MPV Absolute Neuts (auto) Neutrophils % Lymphocytes % Monocytes % Eosinophils % Basophils % Nucleated RBC % Sodium 141 Potassium 5.1 Chloride 107 Carbon Dioxide 28 Anion Gap 6 L BUN 32 H Creatinine 1.4 H Creat Clearance w eGFR 36.56 Random Glucose 179 H Lactic Acid Calcium 8.1 L Total Bilirubin 0.5 AST 15 ALT 16 Alkaline Phosphatase 112 Creatine Kinase Troponin I B-Natriuretic Peptide Total Protein 6.9 Albumin 3.1 L Urine Color Urine Appearance Urine pH Ur Specific [place] Urine Protein Urine Glucose (UA) Urine Ketones Urine Blood Urine Nitrite Urine Bilirubin Urine Urobilinogen Ur Leukocyte Esterase Urine WBC (Auto) Urine RBC (Auto) Ur Epithelial Cells Hyaline Casts Influenza A (Rapid) Influenza B (Rapid) Active Medications Generic Name Dose Route Start Last Admin Trade Name Freq PRN Reason Stop Dose Admin Chlorhexidine Gluconate 1 applic 08/10/18 22:00 Hibiclens For Decolonization - TP HS [facility] Heparin Sodium (Porcine) 5,000 unit 08/11/18 06:00 Heparin - SQ TID [facility] Mupirocin 1 applic 08/10/18 22:00 Bactroban Ointment (For Decolonization) - NS 08/15/18 21:59 BID [facility] ASSESSMENT/PLAN: 78 year old female with a history of diabetes, hypertension, hyperlipidemia and fatty liver who came to the emergency room with SOB on exertion and admitted to ICU for monitoring following pigtail catheter insertion and monitoring of blood pressure due to concern for hematoma Neurological: no acute issues -monitor for neurological changes Cardiovascular: patient was hypertensive on admission -will hold lisinopril due to kidney -will use lasix instead of HCTZ -continue home meds -echo Pulmonary: -patient has large pleural effusion even s/p pigtail insertion -should get fluid analysis -f/u CTA read, does not initially appear hemorrhagic -will likely need CT surg evaluation in AM Renal -Patient arrived hyperkalemia to >6 and she was given insulin/D50 -Repeat potassium improved, monitor BMP in Am -hold lisinopril -per renal consult, may use lasix to diurese instead of HCTZ Endocrine: -DM treatment with sliding scale q6h while NPO -BGM q6h -if made to eat, switch to ACHS FEN -no standing fluids while on lasix -check potassium in AM -NPO for now in case CT surg sees Prophylaxis -SCDs Dispo: We will continue to follow the patient. Thank you for this consultative opportunity. Visit type - Emergency Visit Emergency Visit: Yes ED Registration Date: 08/10/18 Care time: The patient presented to the Emergency Department on the above date and was hospitalized for further evaluation of their emergent condition. - New Patient This patient is new to me today: Yes Date on this admission: 08/10/18 - Critical Care Critical Care patient: Yes Total Critical Care Time (in minutes): 39 Critical Care Statement: The care of this patient involved high complexity decision making to prevent further life threatening deterioration of the patient 's condition and/or to evaluate & treat vital organ system(s) failure or risk of failure.
[2018-08-10] MEDS ORDERED: SODIUM CHLORIDE 1,000 ML IV SCH (20:45)
[2018-08-10] MEDS: INSULIN SLIDING SCALE (NOVOLOG) 1 VIAL SQ SCH (21:30)
[2018-08-10] MEDS: MUPIROCIN 2% TOPICAL OINTMENT FOR DECOLONIZATION NS SCH (21:31)
[2018-08-10] MEDS: CHLORHEXIDINE GLUCONATE 4% CLEANSER FOR DECOLONIZATION TP SCH (21:32)
--- NOTE | 2018-08-11 00:10 | PN ---
Progress Note (short form) - Note Progress Note: Laboratory Tests 08/10/18 19:07 Sodium 141 Potassium 5.1 Chloride 107 Carbon Dioxide 28 BUN 32 H Creatinine 1.[address] Shepherd Problem List - Problems (1) Hyperkalemia Code(s): E87.5 - HYPERKALEMIA (2) Diabetes mellitus Code(s): E11.9 - TYPE 2 DIABETES MELLITUS WITHOUT COMPLICATIONS (3) HTN (hypertension) Code(s): I10 - ESSENTIAL (PRIMARY) HYPERTENSION
[2018-08-11] MEDS: INSULIN SLIDING SCALE (NOVOLOG) 1 VIAL SQ SCH ×4 (02:49→18:21)
[2018-08-11] MEDS: HEPARIN NA (PORCINE) 5,000 UNITS/ML 1ML VIAL SQ SCH ×2 (06:08→14:13)
[2018-08-11 07:16] LABS: BASO % 0.4 % (0-2.0); EOS % 1.2 % (0-4.5); HEMATOCRIT 29.7 % (32.4-45.2); HEMOGLOBIN 9.7 GM/dL (10.7-15.3); LYMPH % 19.2 % (8-40); MCHC 32.7 g/dl (32.0-36.0); MEAN CELL VOLUME 91.8 fl (80-96); MEAN PLT VOLUME 9.5 fl (7.5-11.1); MONO % 16.6 % (3.8-10.2); NEUT % 62.6 % (42.8-82.8); PLATELET COUNT 207 K/MM3 (134-434); RBC 3.24 M/mm3 (3.60-5.2); RDW 14.5 % (11.6-15.6); WHITE BLOOD COUNT 9.4 K/mm3 (4.0-10.0)
[2018-08-11 07:30] LABS: ALBUMIN 2.8 g/dl (3.4-5.0); ALK PHOS 104 U/L (45-117); ANION GAP 3 MMOL/L (8-16); BILIRUBIN,TOTAL 0.5 mg/dL (0.2-1); BLOOD UREA NITROGEN 29 mg/dL (7-18); CALCIUM 7.7 mg/dL (8.5-10.1); CHLORIDE 106 mmol/L (98-107); CO2 33 mmol/L (21-32); CREATININE 1.2 mg/dL (0.55-1.3); GLUCOSE,RANDOM 146 mg/dL (74-106); MAGNESIUM 2.2 mg/dL (1.8-2.4); POTASSIUM 4.6 mmol/L (3.5-5.1); SGOT/AST 11 U/L (15-37); SGPT/ALT 15 U/L (13-61); SODIUM 142 mmol/L (136-145); TOT PROT 6.4 g/dl (6.4-8.2)
[2018-08-11 07:38] LABS: INR 1.12 (0.83-1.09); PROTHROMBIN TIME (PATIENT) 13.2 SEC (9.7-13.0)
[2018-08-11] MEDS ORDERED: NEBIVOLOL 10 MG TABLET (FP) PO SCH (10:00)
[2018-08-11] MEDS ORDERED: FUROSEMIDE 40 MG TABLET (FP) PO SCH (10:00)
--- NOTE | 2018-08-11 10:02 | PN ---
Teaching Attending Note Name of Resident: Jaylene Duarte ATTENDING PHYSICIAN STATEMENT I saw and evaluated the patient. I reviewed the resident's note and discussed the case with the resident. I agree with the resident's findings and plan as documented. SUBJECTIVE: Patient seen and examined in the ICU. Awake and alert. Denies CP or SOB. Drop in H&H noted. Denies pain at the site of the attempted pleural catheter insertion. Intake & Output 08/08/18 08/09/18 08/10/18 08/11/18 23:59 23:59 23:59 23:59 Intake Total 250 525 Output Total 400 100 Balance -150 425 Weight 169 lb 9.6 oz 173 lb Last Vital Signs Temp Pulse Resp BP Pulse Ox 98.6 F 62 18 152/57 L 97 08/11/18 06:00 08/11/18 08:00 08/11/18 08:00 08/11/18 08:00 08/10/18 21:00 Active Medications Chlorhexidine Gluconate (Hibiclens For Decolonization -) 1 applic TP HS [facility] Last Admin: 08/10/18 21:32 Dose: 1 applic Heparin Sodium (Porcine) (Heparin -) 5,000 unit SQ TID [facility] Last Admin: 08/11/18 06:08 Dose: 5,000 unit Sodium Chloride (Normal Saline -) 1,000 mls @ 75 mls/hr IV ASDIR [facility] Last Admin: 08/10/18 21:30 Dose: 75 mls/hr Insulin Aspart (Novolog Vial Sliding Scale -) 1 vial SQ Q6H [facility]; Protocol Last Admin: 08/11/18 02:49 Dose: 4 units Mupirocin (Bactroban Ointment (For Decolonization) -) 1 applic NS BID [facility] Stop: 08/15/18 21:59 Last Admin: 08/10/18 21:31 Dose: 1 applic Nebivolol (Bystolic -) 10 mg PO DAILY [facility] GENERAL: A&Ox3, no acute distress EYES: PERRLA, EOMI ENT: Moist mucus membranes NECK: No JVD LUNGS: Mild swelling in the area of the attempted pleural catheter, decreased breath sounds HEART: S1S2, regular ABDOMEN: Soft, nontender, BS present MUSCULOSKELETAL: No CVA Tenderness, puncture wound from previous pigtail insertion noted on R sided chest wall mid-axillary region EXTREMITIES: 2+ pulses, no edema. NEUROLOGICAL: Non-focal Laboratory Results - last 24 hr 08/10/18 08/10/18 08/10/18 12:00 12:27 12:27 WBC 9.5 RBC 3.68 Hgb 10.8 Hct 33.7 MCV 91.7 MCH 29.3 MCHC 32.0 RDW 14.7 Plt Count 230 MPV 9.2 Absolute Neuts (auto) 6.6 Neutrophils % 69.0 Lymphocytes % 18.1 Monocytes % 11.7 H Eosinophils % 0.3 Basophils % 0.9 Nucleated RBC % 0 PT with INR INR Sodium Potassium Chloride Carbon Dioxide Anion Gap BUN Creatinine Creat Clearance w eGFR POC Glucometer Random Glucose Hemoglobin A1c % Lactic Acid Calcium Phosphorus Magnesium Total Bilirubin AST ALT Alkaline Phosphatase Creatine Kinase Troponin I B-Natriuretic Peptide Total Protein Albumin Urine Color Yellow Urine Appearance Clear Urine pH 6.0 Ur Specific [place] 1.014 Urine Protein 2+ H Urine Glucose (UA) Negative Urine Ketones Negative Urine Blood Negative Urine Nitrite Negative Urine Bilirubin Negative Urine Urobilinogen Negative Ur Leukocyte Esterase Negative Urine WBC (Auto) <1 Urine RBC (Auto) <1 Ur Epithelial Cells Rare Hyaline Casts 5 Influenza A (Rapid) Negative Influenza B (Rapid) Negative 08/10/18 08/10/18 08/10/18 12:27 13:21 14:21 WBC RBC Hgb Hct MCV MCH MCHC RDW Plt Count MPV Absolute Neuts (auto) Neutrophils % Lymphocytes % Monocytes % Eosinophils % Basophils % Nucleated RBC % PT with INR INR Sodium 139 138 Potassium 6.7 H* 6.6 H* Chloride 107 105 Carbon Dioxide 26 30 Anion Gap 6 L 3 L BUN 32 H 32 H Creatinine 1.5 H 1.5 H Creat Clearance w eGFR 33.76 33.76 POC Glucometer Random Glucose 154 H 147 H Hemoglobin A1c % Lactic Acid 1.6 Calcium 8.4 L 9.0 Phosphorus Magnesium Total Bilirubin 0.5 0.5 AST 23 17 ALT 19 19 Alkaline Phosphatase 118 H 126 H Creatine Kinase 72 Troponin I < 0.02 B-Natriuretic Peptide 1552.0 H Total Protein 7.3 7.6 Albumin 3.4 3.5 Urine Color Urine Appearance Urine pH Ur Specific [place] Urine Protein Urine Glucose (UA) Urine Ketones Urine Blood Urine Nitrite Urine Bilirubin Urine Urobilinogen Ur Leukocyte Esterase Urine WBC (Auto) Urine RBC (Auto) Ur Epithelial Cells Hyaline Casts Influenza A (Rapid) Influenza B (Rapid) 08/10/18 08/10/18 08/11/18 19:07 21:10 02:46 WBC RBC Hgb Hct MCV MCH MCHC RDW Plt Count MPV Absolute Neuts (auto) Neutrophils % Lymphocytes % Monocytes % Eosinophils % Basophils % Nucleated RBC % PT with INR INR Sodium 141 Potassium 5.1 Chloride 107 Carbon Dioxide 28 Anion Gap 6 L BUN 32 H Creatinine 1.4 H Creat Clearance w eGFR 36.56 POC Glucometer 203 219 Random Glucose 179 H Hemoglobin A1c % Lactic Acid Calcium 8.1 L Phosphorus Magnesium Total Bilirubin 0.5 AST 15 ALT 16 Alkaline Phosphatase 112 Creatine Kinase Troponin I B-Natriuretic Peptide Total Protein 6.9 Albumin 3.1 L Urine Color Urine Appearance Urine pH Ur Specific [place] Urine Protein Urine Glucose (UA) Urine Ketones Urine Blood Urine Nitrite Urine Bilirubin Urine Urobilinogen Ur Leukocyte Esterase Urine WBC (Auto) Urine RBC (Auto) Ur Epithelial Cells Hyaline Casts Influenza A (Rapid) Influenza B (Rapid) 08/11/18 08/11/18 08/11/18 05:30 05:30 05:30 WBC 9.4 RBC 3.24 L Hgb 9.7 L Hct 29.7 L MCV 91.8 MCH 30.0 MCHC 32.7 RDW 14.5 Plt Count 207 MPV 9.5 Absolute Neuts (auto) 5.9 Neutrophils % 62.6 Lymphocytes % 19.2 Monocytes % 16.6 H Eosinophils % 1.2 D Basophils % 0.4 Nucleated RBC % 0 PT with INR 13.20 H INR 1.12 H Sodium 142 Potassium 4.6 Chloride 106 Carbon Dioxide 33 H Anion Gap 3 L BUN 29 H Creatinine 1.2 Creat Clearance w eGFR 43.68 POC Glucometer Random Glucose 146 H Hemoglobin A1c % Lactic Acid Calcium 7.7 L Phosphorus 4.0 Magnesium 2.2 Total Bilirubin 0.5 AST 11 L ALT 15 Alkaline Phosphatase 104 Creatine Kinase Troponin I B-Natriuretic Peptide Total Protein 6.4 Albumin 2.8 L Urine Color Urine Appearance Urine pH Ur Specific [place] Urine Protein Urine Glucose (UA) Urine Ketones Urine Blood Urine Nitrite Urine Bilirubin Urine Urobilinogen Ur Leukocyte Esterase Urine WBC (Auto) Urine RBC (Auto) Ur Epithelial Cells Hyaline Casts Influenza A (Rapid) Influenza B (Rapid) 08/11/18 05:30 WBC RBC Hgb Hct MCV MCH MCHC RDW Plt Count MPV Absolute Neuts (auto) Neutrophils % Lymphocytes % Monocytes % Eosinophils % Basophils % Nucleated RBC % PT with INR INR Sodium Potassium Chloride Carbon Dioxide Anion Gap BUN Creatinine Creat Clearance w eGFR POC Glucometer Random Glucose Hemoglobin A1c % 8.9 H Lactic Acid Calcium Phosphorus Magnesium Total Bilirubin AST ALT Alkaline Phosphatase Creatine Kinase Troponin I B-Natriuretic Peptide Total Protein Albumin Urine Color Urine Appearance Urine pH Ur Specific [place] Urine Protein Urine Glucose (UA) Urine Ketones Urine Blood Urine Nitrite Urine Bilirubin Urine Urobilinogen Ur Leukocyte Esterase Urine WBC (Auto) Urine RBC (Auto) Ur Epithelial Cells Hyaline Casts Influenza A (Rapid) Influenza B (Rapid) ASSESSMENT/PLAN: Suspected CHF as the etiology of the bilateral pleural effusions Diabetes Hypertension Hyperlipidemia Fatty liver Possible component of hemothorax on the right No PTX HTN Hyperkalemia Lasix Stop IVF Follow H & H Strict I & O O2 as needed ECHO OOB to chair Follow CXR today (none completed) Glycemic control At present no role for Thoracic surgical intervention Cardiac Telemetry monitoring Dr Lee
[2018-08-11] MEDS ORDERED: FUROSEMIDE 40 MG/4 ML INJECTABLE VIAL IVPUSH SCH (10:15)
--- NOTE | 2018-08-11 10:29 | PN ---
Physical Exam: SUBJECTIVE: Patient seen and examined this am. Mild pain over pigtail insertion site. Son at bedside. OBJECTIVE: Vital Signs Period Temp Pulse Resp BP Sys/Broussard Pulse Ox Last 24 Hr 98.0 F-99.2 F 59-77 15-80 133-185/48-87 86-100 GENERAL: A&Ox3, NAD HEAD: NCAT EYES: PERRL, EOMI ENT: Moist mucous membranes. NECK: Supple LUNGS: Diminished breath sounds at the bases, no wheezes, no crackles HEART: Regular rate and rhythm, S1, S2 without murmur CHEST: Wound from pigtail insertion over R sided chest wall, covered with dressing C/D/I ABDOMEN: Soft, nontender, nondistended, + bowel sounds, no guarding EXTREMITIES: No edema NEUROLOGICAL: Cranial nerves II through XII grossly intact. SKIN: Warm, dry Laboratory Results - last 24 hr 08/10/18 08/10/18 08/10/18 12:00 12:27 12:27 WBC 9.5 RBC 3.68 Hgb 10.8 Hct 33.7 MCV 91.7 MCH 29.3 MCHC 32.0 RDW 14.7 Plt Count 230 MPV 9.2 Absolute Neuts (auto) 6.6 Neutrophils % 69.0 Lymphocytes % 18.1 Monocytes % 11.7 H Eosinophils % 0.3 Basophils % 0.9 Nucleated RBC % 0 PT with INR INR Sodium Potassium Chloride Carbon Dioxide Anion Gap BUN Creatinine Creat Clearance w eGFR POC Glucometer Random Glucose Hemoglobin A1c % Lactic Acid Calcium Phosphorus Magnesium Total Bilirubin AST ALT Alkaline Phosphatase Creatine Kinase Troponin I B-Natriuretic Peptide Total Protein Albumin Urine Color Yellow Urine Appearance Clear Urine pH 6.0 Ur Specific [place] 1.014 Urine Protein 2+ H Urine Glucose (UA) Negative Urine Ketones Negative Urine Blood Negative Urine Nitrite Negative Urine Bilirubin Negative Urine Urobilinogen Negative Ur Leukocyte Esterase Negative Urine WBC (Auto) <1 Urine RBC (Auto) <1 Ur Epithelial Cells Rare Hyaline Casts 5 Influenza A (Rapid) Negative Influenza B (Rapid) Negative 08/10/18 08/10/18 08/10/18 12:27 13:21 14:21 WBC RBC Hgb Hct MCV MCH MCHC RDW Plt Count MPV Absolute Neuts (auto) Neutrophils % Lymphocytes % Monocytes % Eosinophils % Basophils % Nucleated RBC % PT with INR INR Sodium 139 138 Potassium 6.7 H* 6.6 H* Chloride 107 105 Carbon Dioxide 26 30 Anion Gap 6 L 3 L BUN 32 H 32 H Creatinine 1.5 H 1.5 H Creat Clearance w eGFR 33.76 33.76 POC Glucometer Random Glucose 154 H 147 H Hemoglobin A1c % Lactic Acid 1.6 Calcium 8.4 L 9.0 Phosphorus Magnesium Total Bilirubin 0.5 0.5 AST 23 17 ALT 19 19 Alkaline Phosphatase 118 H 126 H Creatine Kinase 72 Troponin I < 0.02 B-Natriuretic Peptide 1552.0 H Total Protein 7.3 7.6 Albumin 3.4 3.5 Urine Color Urine Appearance Urine pH Ur Specific [place] Urine Protein Urine Glucose (UA) Urine Ketones Urine Blood Urine Nitrite Urine Bilirubin Urine Urobilinogen Ur Leukocyte Esterase Urine WBC (Auto) Urine RBC (Auto) Ur Epithelial Cells Hyaline Casts Influenza A (Rapid) Influenza B (Rapid) 08/10/18 08/10/18 08/11/18 19:07 21:10 02:46 WBC RBC Hgb Hct MCV MCH MCHC RDW Plt Count MPV Absolute Neuts (auto) Neutrophils % Lymphocytes % Monocytes % Eosinophils % Basophils % Nucleated RBC % PT with INR INR Sodium 141 Potassium 5.1 Chloride 107 Carbon Dioxide 28 Anion Gap 6 L BUN 32 H Creatinine 1.4 H Creat Clearance w eGFR 36.56 POC Glucometer 203 219 Random Glucose 179 H Hemoglobin A1c % Lactic Acid Calcium 8.1 L Phosphorus Magnesium Total Bilirubin 0.5 AST 15 ALT 16 Alkaline Phosphatase 112 Creatine Kinase Troponin I B-Natriuretic Peptide Total Protein 6.9 Albumin 3.1 L Urine Color Urine Appearance Urine pH Ur Specific [place] Urine Protein Urine Glucose (UA) Urine Ketones Urine Blood Urine Nitrite Urine Bilirubin Urine Urobilinogen Ur Leukocyte Esterase Urine WBC (Auto) Urine RBC (Auto) Ur Epithelial Cells Hyaline Casts Influenza A (Rapid) Influenza B (Rapid) 08/11/18 08/11/18 08/11/18 05:30 05:30 05:30 WBC 9.4 RBC 3.24 L Hgb 9.7 L Hct 29.7 L MCV 91.8 MCH 30.0 MCHC 32.7 RDW 14.5 Plt Count 207 MPV 9.5 Absolute Neuts (auto) 5.9 Neutrophils % 62.6 Lymphocytes % 19.2 Monocytes % 16.6 H Eosinophils % 1.2 D Basophils % 0.4 Nucleated RBC % 0 PT with INR 13.20 H INR 1.12 H Sodium 142 Potassium 4.6 Chloride 106 Carbon Dioxide 33 H Anion Gap 3 L BUN 29 H Creatinine 1.2 Creat Clearance w eGFR 43.68 POC Glucometer Random Glucose 146 H Hemoglobin A1c % Lactic Acid Calcium 7.7 L Phosphorus 4.0 Magnesium 2.2 Total Bilirubin 0.5 AST 11 L ALT 15 Alkaline Phosphatase 104 Creatine Kinase Troponin I B-Natriuretic Peptide Total Protein 6.4 Albumin 2.8 L Urine Color Urine Appearance Urine pH Ur Specific [place] Urine Protein Urine Glucose (UA) Urine Ketones Urine Blood Urine Nitrite Urine Bilirubin Urine Urobilinogen Ur Leukocyte Esterase Urine WBC (Auto) Urine RBC (Auto) Ur Epithelial Cells Hyaline Casts Influenza A (Rapid) Influenza B (Rapid) 08/11/18 05:30 WBC RBC Hgb Hct MCV MCH MCHC RDW Plt Count MPV Absolute Neuts (auto) Neutrophils % Lymphocytes % Monocytes % Eosinophils % Basophils % Nucleated RBC % PT with INR INR Sodium Potassium Chloride Carbon Dioxide Anion Gap BUN Creatinine Creat Clearance w eGFR POC Glucometer Random Glucose Hemoglobin A1c % 8.9 H Lactic Acid Calcium Phosphorus Magnesium Total Bilirubin AST ALT Alkaline Phosphatase Creatine Kinase Troponin I B-Natriuretic Peptide Total Protein Albumin Urine Color Urine Appearance Urine pH Ur Specific [place] Urine Protein Urine Glucose (UA) Urine Ketones Urine Blood Urine Nitrite Urine Bilirubin Urine Urobilinogen Ur Leukocyte Esterase Urine WBC (Auto) Urine RBC (Auto) Ur Epithelial Cells Hyaline Casts Influenza A (Rapid) Influenza B (Rapid) Microbiology 08/10/18 12:27 Urine - Urine Clean Catch Urine Culture - Final NO GROWTH OBTAINED Active Medications Chlorhexidine Gluconate (Hibiclens For Decolonization -) 1 applic TP HS [facility] Last Admin: 08/10/18 21:32 Dose: 1 applic Furosemide (Lasix Injection -) 40 mg IVPUSH DAILY [facility] Heparin Sodium (Porcine) (Heparin -) 5,000 unit SQ TID [facility] Last Admin: 08/11/18 06:08 Dose: 5,000 unit Insulin Aspart (Novolog Vial Sliding Scale -) 1 vial SQ Q6H [facility]; Protocol Last Admin: 08/11/18 02:49 Dose: 4 units Mupirocin (Bactroban Ointment (For Decolonization) -) 1 applic NS BID [facility] Stop: 08/15/18 21:59 Last Admin: 08/10/18 21:31 Dose: 1 applic Nebivolol (Bystolic -) 10 mg PO DAILY [facility] ASSESSMENT/PLAN: 78 y/o F with PMHx of DM, HTN, HLD and fatty liver was admitted to ICU for concerns for Hematoma s/p Pigtail catheter insertion. #Neuro -A&Ox3, NAD -Monitor for changes in mental status #Cardio Hypertensive on admission, Improved -Continue Furosemide 40mg Daily, Nebivolol 10mg Daily -Hold Lisinopril given rising Cr -Echo pending #Pulm Pleural Effusion S/P attempted Pigtail catheter placement -CXR: Right pleural effusion. -CTA: Moderate right-sided and small to moderate left-sided pleural effusions are noted which appear to be nonhemorrhagic. -Continue to monitor H&H for acute decrease -Dr. Leija consulted, appreciate rec's #Renal CYNTHIA, Resolved Hyperkalemia, Improved -Hold Lisinopril -Continue to monitor Urine output, I&Os, K+ -Dr. Shepherd consulted, appreciate rec's #ID -Afebrile, without leukocytosis -UA, Influenza negative -Blood and Urine Cx NGTD #Endo -A1c 8.9% -BGM, ISS ACHS #FEN -No standing fluids -Replete lytes PRN -NPO pending CT surgery eval #PPx -SCDs Dispo: Transfer to Tele Visit type - Emergency Visit Emergency Visit: Yes ED Registration Date: 08/10/18 Care time: The patient presented to the Emergency Department on the above date and was hospitalized for further evaluation of their emergent condition. - New Patient This patient is new to me today: Yes Date on this admission: 08/11/18 - Critical Care Critical Care patient: Yes Total Critical Care Time (in minutes): 36 Critical Care Statement: The care of this patient involved high complexity decision making to prevent further life threatening deterioration of the patient 's condition and/or to evaluate & treat vital organ system(s) failure or risk of failure.
[2018-08-11] MEDS: MUPIROCIN 2% TOPICAL OINTMENT FOR DECOLONIZATION NS SCH (11:02)
[2018-08-11] MEDS ORDERED: PT OWN MED DRAWER 7, Y5N ONE (11:07)
--- NOTE | 2018-08-11 13:14 | PN ---
Progress Note, Physician History of Present Illness: pt seen/ examined in icu chart reviewed case discussed with icu team awake/ comfortable feels better denies pain denies cp/sob no abd pain - Current Medication List Current Medications: Active Medications Atorvastatin Calcium (Lipitor -) 40 mg PO HS [facility] Chlorhexidine Gluconate (Hibiclens For Decolonization -) 1 applic TP HS [facility] Last Admin: 08/10/18 21:32 Dose: 1 applic Furosemide (Lasix Injection -) 40 mg IVPUSH DAILY [facility] Last Admin: 08/11/18 11:07 Dose: 40 mg Heparin Sodium (Porcine) (Heparin -) 5,000 unit SQ TID [facility] Last Admin: 08/11/18 06:08 Dose: 5,000 unit Insulin Aspart (Novolog Vial Sliding Scale -) 1 vial SQ ACHS [facility]; Protocol Last Admin: 08/11/18 11:43 Dose: 2 units Insulin Detemir (Levemir Vial) 10 units SQ HS [facility] Mupirocin (Bactroban Ointment (For Decolonization) -) 1 applic NS BID [facility] Stop: 08/15/18 21:59 Last Admin: 08/11/18 11:02 Dose: 1 applic Nebivolol (Bystolic -) 10 mg PO DAILY [facility] - Objective Vital Signs: Vital Signs Temperature 98.6 F 08/11/18 10:00 Pulse Rate 60 08/11/18 12:00 Respiratory Rate 15 08/11/18 12:00 Blood Pressure 145/73 08/11/18 12:00 O2 Sat by Pulse Oximetry (%) 98 08/11/18 10:00 Constitutional: Yes: No Distress, Calm Eyes: Yes: Conjunctiva Clear Neck: Yes: Supple Cardiovascular: Yes: Regular Rate and Rhythm Respiratory: Yes: Diminished Gastrointestinal: Yes: Soft Edema: No Neurological: Yes: Alert Labs: CBC, BMP 08/11/18 05:30 08/11/18 05:30 INR, PTT INR 1.12 (0.83-1.09) H 08/11/18 05:30 - ....Imaging Chest X-ray: Report Reviewed Cat Scan: Report Reviewed Problem List - Problems (1) CYNTHIA (acute kidney injury) Code(s): N17.9 - ACUTE KIDNEY FAILURE, UNSPECIFIED (2) CHF (congestive heart failure) Code(s): I50.9 - HEART FAILURE, UNSPECIFIED (3) Diabetes mellitus Code(s): E11.9 - TYPE 2 DIABETES MELLITUS WITHOUT COMPLICATIONS (4) HTN (hypertension) Code(s): I10 - ESSENTIAL (PRIMARY) HYPERTENSION (5) Hyperkalemia Code(s): E87.5 - HYPERKALEMIA (6) Pleural effusion Code(s): J90 - PLEURAL EFFUSION, NOT ELSEWHERE CLASSIFIED Assessment/Plan clinically stable continue present care start on diet check tsh level/ lipid profile add statin consider starting bob in future echo pending cardiology consult lasix d/c fluids hyperkalemia resolved stable for transfer to [facility] will follow. Discussed with nursing staff also
--- NOTE | 2018-08-11 14:48 | PN ---
Progress Note, Physician History of Present Illness: Pt seen and examined at bedside. She is out of bed to chair today. She is in the ICU. She does get shortness of breath with exertion. - Current Medication List Current Medications: Active Medications Atorvastatin Calcium (Lipitor -) 40 mg PO HS [facility] Chlorhexidine Gluconate (Hibiclens For Decolonization -) 1 applic TP HS [facility] Last Admin: 08/10/18 21:32 Dose: 1 applic Furosemide (Lasix Injection -) 40 mg IVPUSH DAILY [facility] Last Admin: 08/11/18 11:07 Dose: 40 mg Heparin Sodium (Porcine) (Heparin -) 5,000 unit SQ TID [facility] Last Admin: 08/11/18 14:13 Dose: 5,000 unit Insulin Aspart (Novolog Vial Sliding Scale -) 1 vial SQ ACHS [facility]; Protocol Last Admin: 08/11/18 11:43 Dose: 2 units Insulin Detemir (Levemir Vial) 10 units SQ HS [facility] Mupirocin (Bactroban Ointment (For Decolonization) -) 1 applic NS BID [facility] Stop: 08/15/18 21:59 Last Admin: 08/11/18 11:02 Dose: 1 applic Nebivolol (Bystolic -) 10 mg PO DAILY [facility] Last Admin: 08/11/18 14:13 Dose: 10 mg - Objective Vital Signs: Vital Signs Temperature 98.5 F 08/11/18 14:00 Pulse Rate 62 08/11/18 14:00 Respiratory Rate 21 H 08/11/18 14:00 Blood Pressure 154/63 08/11/18 14:00 O2 Sat by Pulse Oximetry (%) 98 08/11/18 10:00 Constitutional: Yes: Calm HENT: Yes: Normocephalic Cardiovascular: Yes: S1, S2 Respiratory: Yes: On Nasal O2, Rhonchi Gastrointestinal: Yes: Soft Genitourinary: Yes: WNL Musculoskeletal: Yes: WNL Edema: Yes Edema: LLE: 1+, RLE: 1+ Neurological: Yes: Oriented Psychiatric: Yes: Oriented Labs: CBC, BMP 08/11/18 05:30 08/11/18 05:30 INR, PTT INR 1.12 (0.83-1.09) H 08/11/18 05:30 Problem List - Problems (1) Hyperkalemia Code(s): E87.5 - HYPERKALEMIA (2) Diabetes mellitus Code(s): E11.9 - TYPE 2 DIABETES MELLITUS WITHOUT COMPLICATIONS (3) HTN (hypertension) Code(s): I10 - ESSENTIAL (PRIMARY) HYPERTENSION Assessment/Plan Current Medications Generic Name Dose Route Start Last Admin Trade Name Faith PRN Reason Stop Dose Admin Atorvastatin Calcium 40 mg 08/11/18 22:00 Lipitor - PO HS [facility] Chlorhexidine Gluconate 1 applic 08/10/18 22:00 08/10/18 21:32 Hibiclens For Decolonization - TP 1 applic HS [facility] Administration Furosemide 40 mg 08/11/18 10:15 08/11/18 11:07 Lasix Injection - IVPUSH 40 mg DAILY [facility] Administration Heparin Sodium (Porcine) 5,000 unit 08/11/18 06:00 08/11/18 14:13 Heparin - SQ 5,000 unit TID [facility] Administration Insulin Aspart 1 vial 08/11/18 16:30 08/11/18 11:43 Novolog Vial Sliding Scale - SQ 2 units ACHS [facility] Administration Protocol Insulin Detemir 10 units 08/11/18 22:00 Levemir Vial SQ HS [facility] Mupirocin 1 applic 08/10/18 22:00 08/11/18 11:02 Bactroban Ointment (For Decolonization) - NS 08/15/18 21:59 1 applic BID [facility] Administration Nebivolol 10 mg 08/11/18 10:00 08/11/18 14:13 Bystolic - PO 10 mg DAILY [facility] Administration Impression 1. hyperkalemia 2. 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 pleural effusion 4. htn 5. DM 6. hx fatty liver Plan - potassium is improved - cont lasix - monitor renal function - keep lisinopril on hold - keep volume negative as she appears overloaded
[2018-08-12] MEDS: ATORVASTATIN CA 40 MG TABLET (FP) PO SCH ×2 (00:14→22:11)
[2018-08-12] MEDS: INSULIN (LEVEMIR) 100 UNITS/ML UNITS SQ SCH ×2 (00:14→22:13)
[2018-08-12] MEDS: CHLORHEXIDINE GLUCONATE 4% CLEANSER FOR DECOLONIZATION TP SCH (00:14)
[2018-08-12] MEDS: MUPIROCIN 2% TOPICAL OINTMENT FOR DECOLONIZATION NS SCH (00:14)
[2018-08-12] MEDS: HEPARIN NA (PORCINE) 5,000 UNITS/ML 1ML VIAL SQ SCH ×4 (00:14→22:11)
[2018-08-12] MEDS: INSULIN SLIDING SCALE (NOVOLOG) 1 VIAL SQ SCH ×5 (00:15→22:12)
[2018-08-12 08:03] LABS: BASO % 0.5 % (0-2.0); EOS % 2.3 % (0-4.5); HEMATOCRIT 30.3 % (32.4-45.2); HEMOGLOBIN 9.9 GM/dL (10.7-15.3); LYMPH % 19.1 % (8-40); MCH 29.8 pg (25.7-33.7); MCHC 32.6 g/dl (32.0-36.0); MEAN CELL VOLUME 91.4 fl (80-96); MEAN PLT VOLUME 9.4 fl (7.5-11.1); MONO % 17.1 % (3.8-10.2); PLATELET COUNT 215 K/MM3 (134-434); RBC 3.31 M/mm3 (3.60-5.2); RDW 14.4 % (11.6-15.6); WHITE BLOOD COUNT 8.1 K/mm3 (4.0-10.0)
[2018-08-12 08:33] LABS: CHOLESTEROL 163 mg/dL (50-200); HDL CHOLESTEROL 49 mg/dL (40-60); TRIGLYCERIDES 123 mg/dL (0-150)
[2018-08-12 08:47] LABS: ALBUMIN 2.8 g/dl (3.4-5.0); ALK PHOS 96 U/L (45-117); ANION GAP 4 MMOL/L (8-16); BILIRUBIN,TOTAL 0.5 mg/dL (0.2-1); BLOOD UREA NITROGEN 28 mg/dL (7-18); CALCIUM 8.4 mg/dL (8.5-10.1); CHLORIDE 103 mmol/L (98-107); CO2 35 mmol/L (21-32); CREATININE 1.3 mg/dL (0.55-1.3); GLUCOSE,RANDOM 148 mg/dL (74-106); MAGNESIUM 2.1 mg/dL (1.8-2.4); POTASSIUM 4.4 mmol/L (3.5-5.1); SGOT/AST 9 U/L (15-37); SGPT/ALT 13 U/L (13-61); SODIUM 142 mmol/L (136-145); TOT PROT 6.4 g/dl (6.4-8.2)
[2018-08-12] MEDS: FUROSEMIDE 40 MG/4 ML INJECTABLE VIAL IVPUSH SCH (09:03)
[2018-08-12] MEDS: NEBIVOLOL 10 MG TABLET (FP) PO SCH (09:03)
[2018-08-12] MEDS ORDERED: MUPIROCIN 2% TOPICAL OINTMENT FOR DECOLONIZATION NS SCH (10:00)
--- NOTE | 2018-08-12 11:30 | PN ---
Progress Note (short form) - Note Progress Note: Chief Complaint: Events noted, notes reviewed, reported progressive dyspnea, denies any chest pain History of Present Illness: Seen and examined on telemetry. Full consult dictated - Current Medication List Current Medications: Current Medications Atorvastatin Calcium (Lipitor -) 40 mg PO HS [facility] Last Admin: 08/12/18 00:14 Dose: 40 mg Furosemide (Lasix Injection -) 40 mg IVPUSH DAILY [facility] Last Admin: 08/12/18 09:03 Dose: 40 mg Heparin Sodium (Porcine) (Heparin -) 5,000 unit SQ TID [facility] Last Admin: 08/12/18 06:44 Dose: 5,000 unit Insulin Aspart (Novolog Vial Sliding Scale -) 1 vial SQ ACHS [facility]; Protocol Last Admin: 08/12/18 11:25 Dose: Not Given Insulin Detemir (Levemir Vial) 10 units SQ HS [facility] Last Admin: 08/12/18 00:14 Dose: 10 units Nebivolol (Bystolic -) 10 mg PO DAILY [facility] Last Admin: 08/12/18 09:03 Dose: 10 mg Review of Systems Cardiovascular: As noted above Respiratory: denies: denies: Cough or Sputum Production Gastrointestinal: denies: Nausea, Vomiting, Diarrhea, Constipation or Abdominal Discomfort Musculoskeletal: No Symptoms Reported Endocrine: No Symptoms Reported - Objective Vital Signs: Last Vital Signs Temp Pulse Resp BP Pulse Ox 97.2 F L 57 L 20 135/61 92 L 08/12/18 10:00 08/12/18 10:00 08/12/18 10:00 08/12/18 10:00 08/12/18 09:00 Intake & Output 08/09/18 08/10/18 08/11/18 08/12/18 23:59 23:59 23:59 23:59 Intake Total 250 1175 Output Total 400 100 Balance -150 1075 Weight 169 lb 9.6 oz 173 lb Constitutional: No Distress Neck: Supple Negative JVD No Bruit Cardiovascular: S1 S2 Regular Rate Rhythm Respiratory: Diminished Breath Sounds Bilaterally Gastrointestinal: Soft Benign Normal Bowel Sounds Ext: Trace Edema Labs: CBC, BMP 08/12/18 06:18 08/12/18 06:18 Hepatic Panel Total Bilirubin 0.5 mg/dL (0.2-1) 08/12/18 06:18 AST 9 U/L (15-37) L 08/12/18 06:18 ALT 13 U/L (13-61) 08/12/18 06:18 Alkaline Phosphatase 96 U/L (45-117) 08/12/18 06:18 Albumin 2.8 g/dl (3.4-5.0) L 08/12/18 06:18 INR, PTT INR 1.12 (0.83-1.09) H 08/11/18 05:30 Assessment/Plan ASSESSMENT: 1. Clinical presentation consistent with acute on chronic II-III NYHA classification diastolic LV failure, resolving 2. CAD angina pectoris 3. HTN 4. DM 5. Hypercholesterolemia 6. Acute on chronic kidney disease 7. Anemia PLAN: 1. Continue Bystolic 2. Ideally should be on ACEI or ARBS once renal function at baseline 3. Continue IV Lasix with caution and close monitoring of renal function 4. Continue Lipitor 5. Add ASA unless it is contraindicated 6. No clinical indications at this point for repeat thoracentesis unless pleural effusion persists and/or increases Lonnie Plata MD
--- NOTE | 2018-08-12 11:41 | PN ---
Progress Note (short form) - Note Progress Note: pt seen/ examined chart reviewed awake/ comfortable family at bedside Vital Signs Temp 97.2 F L 08/12/18 10:00 Pulse 57 L 08/12/18 10:00 Resp 20 08/12/18 10:00 BP 135/61 08/12/18 10:00 Pulse Ox 92 L 08/12/18 09:00 Intake & Output 08/11/18 08/11/18 08/12/18 11:59 23:59 11:59 Intake Total 525 650 Output Total 100 Balance 425 650 Weight 173 lb Intake: IV 525 150 Normal Saline - 1,000 ml 525 150 @ 75 mls/hr IV ASDIR [facility] Rx#:[id number] Oral 500 Output: Urine 100 Void 100 Other: Voiding Method Toilet Toilet # Unmeasured Voids Void 2 Bowel Movement No No Weight Measurement Method [facility] Active Medications Atorvastatin Calcium (Lipitor -) 40 mg PO HS [facility] Last Admin: 08/12/18 00:14 Dose: 40 mg Furosemide (Lasix Injection -) 40 mg IVPUSH DAILY [facility] Last Admin: 08/12/18 09:03 Dose: 40 mg Heparin Sodium (Porcine) (Heparin -) 5,000 unit SQ TID [facility] Last Admin: 08/12/18 06:44 Dose: 5,000 unit Insulin Aspart (Novolog Vial Sliding Scale -) [address] [facility]; Protocol Last Admin: 08/12/18 11:25 Dose: Not Given Insulin Detemir (Levemir Vial) 10 units SQ [facility] Last Admin: 08/12/18 00:14 Dose: 10 units Nebivolol (Bystolic -) 10 mg PO DAILY [facility] Last Admin: 08/12/18 09:03 Dose: 10 mg CBC, BMP 08/12/18 06:18 08/12/18 06:18 Physical Exam Constitutional: Yes: No Distress, Calm Eyes: Yes: Conjunctiva Clear Neck: Yes: Supple Cardiovascular: Yes: Regular Rate and Rhythm Respiratory: Yes: Diminished Gastrointestinal: Yes: Soft Edema: No Neurological: Yes: Alert Assessment/Plan clinically better continue present care echo pending cardiology consult-- discussed with Dr. Garcia also continue i/v lasix will follow. Discussed with nursing staff also as well as son . Problem List - Problems (1) CYNTHIA (acute kidney injury) Code(s): N17.9 - ACUTE KIDNEY FAILURE, UNSPECIFIED (2) CHF (congestive heart failure) Code(s): I50.9 - HEART FAILURE, UNSPECIFIED Qualifiers: Heart failure type: diastolic Heart failure chronicity: acute on chronic Qualified Code(s): I50.33 - Acute on chronic diastolic (congestive) heart failure (3) Diabetes mellitus Code(s): E11.9 - TYPE 2 DIABETES MELLITUS WITHOUT COMPLICATIONS Qualifiers: Diabetes mellitus type: type 2 Diabetes mellitus complication status: with kidney complications Diabetes mellitus complication detail: with other kidney complication (4) HTN (hypertension) Code(s): I10 - ESSENTIAL (PRIMARY) HYPERTENSION Qualifiers: Hypertension type: essential hypertension Qualified Code(s): I10 - Essential (primary) hypertension (5) Hyperkalemia Code(s): E87.5 - HYPERKALEMIA (6) Pleural effusion Code(s): J90 - PLEURAL EFFUSION, NOT ELSEWHERE CLASSIFIED
--- NOTE | 2018-08-12 12:11 | PN ---
Progress Note (short form) - Note Progress Note: Resting in NAD. Denies CP or SOB. No acute events overnight. Intake & Output 08/09/18 08/10/18 08/11/18 08/12/18 23:59 23:59 23:59 23:59 Intake Total 250 1175 Output Total 400 100 Balance -150 1075 Weight 169 lb 9.6 oz 173 lb Last Vital Signs Temp Pulse Resp BP Pulse Ox 97.2 F L 57 L 20 135/61 92 L 08/12/18 10:00 08/12/18 10:00 08/12/18 10:00 08/12/18 10:00 08/12/18 09:00 Active Medications Atorvastatin Calcium (Lipitor -) 40 mg PO HS [facility] Last Admin: 08/12/18 00:14 Dose: 40 mg Furosemide (Lasix Injection -) 40 mg IVPUSH DAILY [facility] Last Admin: 08/12/18 09:03 Dose: 40 mg Heparin Sodium (Porcine) (Heparin -) 5,000 unit SQ TID [facility] Last Admin: 08/12/18 06:44 Dose: 5,000 unit Insulin Aspart (Novolog Vial Sliding Scale -) 1 vial SQ [facility]; Protocol Last Admin: 08/12/18 11:25 Dose: Not Given Insulin Detemir (Levemir Vial) 10 units SQ HS [facility] Last Admin: 08/12/18 00:14 Dose: 10 units Nebivolol (Bystolic -) 10 mg PO DAILY [facility] Last Admin: 08/12/18 09:03 Dose: 10 mg GENERAL: A&Ox3, no acute distress EYES: PERRLA, EOMI ENT: Moist mucus membranes NECK: No JVD LUNGS: decreased swelling in the area of the attempted pleural catheter, decreased breath sounds HEART: S1S2, regular ABDOMEN: Soft, nontender, BS present MUSCULOSKELETAL: No CVA Tenderness, puncture wound from previous pigtail insertion noted on R sided chest wall mid-axillary region EXTREMITIES: 2+ pulses, no edema. NEUROLOGICAL: Non-focal Laboratory Results - last 24 hr 08/11/18 08/12/18 08/12/18 17:45 00:10 06:18 WBC 8.1 RBC 3.31 L Hgb 9.9 L Hct 30.3 L MCV 91.4 MCH 29.8 MCHC 32.6 RDW 14.4 Plt Count 215 MPV 9.4 Absolute Neuts (auto) 5.0 Neutrophils % 61.0 Lymphocytes % 19.1 Monocytes % 17.1 H Eosinophils % 2.3 D Basophils % 0.5 Nucleated RBC % 0 Sodium Potassium Chloride Carbon Dioxide Anion Gap BUN Creatinine Creat Clearance w eGFR POC Glucometer 167 212 Random Glucose Calcium Phosphorus Magnesium Total Bilirubin AST ALT Alkaline Phosphatase Total Protein Albumin Triglycerides Cholesterol Total LDL Cholesterol HDL Cholesterol TSH 08/12/18 08/12/18 08/12/18 06:18 06:18 06:34 WBC RBC Hgb Hct MCV MCH MCHC RDW Plt Count MPV Absolute Neuts (auto) Neutrophils % Lymphocytes % Monocytes % Eosinophils % Basophils % Nucleated RBC % Sodium 142 Potassium 4.4 Chloride 103 Carbon Dioxide 35 H Anion Gap 4 L BUN 28 H Creatinine 1.3 Creat Clearance w eGFR 39.82 POC Glucometer 162 Random Glucose 148 H Calcium 8.4 L Phosphorus 4.0 Magnesium 2.1 Total Bilirubin 0.5 AST 9 L ALT 13 Alkaline Phosphatase 96 Total Protein 6.4 Albumin 2.8 L Triglycerides 123 Cholesterol 163 Total LDL Cholesterol 96 HDL Cholesterol 49 TSH 1.77 08/12/18 11:24 WBC RBC Hgb Hct MCV MCH MCHC RDW Plt Count MPV Absolute Neuts (auto) Neutrophils % Lymphocytes % Monocytes % Eosinophils % Basophils % Nucleated RBC % Sodium Potassium Chloride Carbon Dioxide Anion Gap BUN Creatinine Creat Clearance w eGFR POC Glucometer 116 Random Glucose Calcium Phosphorus Magnesium Total Bilirubin AST ALT Alkaline Phosphatase Total Protein Albumin Triglycerides Cholesterol Total LDL Cholesterol HDL Cholesterol TSH ASSESSMENT/PLAN: Suspected CHF as the etiology of the bilateral pleural effusions Diabetes Hypertension Hyperlipidemia Fatty liver Possible component of hemothorax on the right No PTX HTN Hyperkalemia Lasix Monitor off IVF Follow H & H Strict I & O O2 as needed ECHO OOB to chair Glycemic control Cardiac Telemetry monitoring Dr Lee
--- NOTE | 2018-08-12 13:09 | CONS ---
DATE OF CONSULTATION: 08/12/2018 CONSULTATION REQUESTED BY: Sho Duarte MD CHIEF COMPLAINT: Progressive dyspnea, cardiovascular evaluation. A 78-year-old female, of descent, with known history of probable coronary artery disease, angina pectoris, diastolic left ventricular dysfunction, hypertensive cardiovascular disease, diabetes mellitus, hypercholesterolemia, who presented to [facility] with progressive dyspnea, which has been noted over the last several days. Patient, in addition, reported increasing bilateral lower extremity edema. Patient denied any orthopnea or paroxysmal nocturnal dyspnea. Patient reported progressive fatigue and tiredness. Patient denied any chest discomfort. Upon evaluation in the emergency room, patient was noted to have evidence of pleural effusion. Attempted pigtail catheter insertion was not successful. Patient currently remains dyspneic. Patient did not report any history of palpitations, dizziness, lightheadedness, or syncope. PAST MEDICAL HISTORY: Coronary artery disease, angina pectoris, diastolic left ventricular dysfunction, hypertensive cardiovascular disease, diabetes mellitus, hypercholesterolemia, fatty liver. SOCIAL HISTORY: Nonsmoker. FAMILY HISTORY: Positive coronary artery disease. ALLERGIES: None reported. Medical therapy currently includes Lipitor 40 mg once a day, Lasix 40 mg once a day intravenously, subcutaneous heparin 5000 units 3 times a day, insulin as prescribed, Bystolic 10 mg once a day. REVIEW OF SYSTEMS: Head and Neck: Denies headache, photophobia, blurring of vision. Respiratory: No cough or sputum production. Cardiovascular: As noted above. Gastrointestinal: No nausea, vomiting, diarrhea, abdominal discomfort. Genitourinary: No symptoms reported. Musculoskeletal: No symptoms reported. PHYSICAL EXAMINATION: Vital Signs: Blood pressure is 135/61 mmHg. Pulse rate is 57 beats per minute. Head and Neck: Pupils equal, react to light and accommodation. Extraocular muscles are intact. Anicteric sclerae. Positive JVD. No bruit appreciated. Chest: Diminished breath sounds at the bases bilaterally with basilar rales. Cardiovascular: S1, S2 regular, distant, no murmurs appreciated. Abdomen: Soft, benign. Normoactive bowel sound. Extremities: Trace edema. 1+ distal pulses. No calf tenderness. Chest x-ray was noted. CT scan of the chest was noted. CBC revealed a white cell count of 8.1, hemoglobin 9.9, platelet count of 215. INR 1.12. Basic metabolic profile revealed a sodium of 142, potassium 4.4, BUN 28, creatinine 1.3, estimated GFR 39.82, glucose 148, cholesterol 163, LDL 96, HDL 49, triglyceride 123. ASSESSMENT: 1. Clinical presentation consistent with acute on chronic class 2 to 3 [place] [employer] classification diastolic left ventricular failure, resolving. 2. Coronary artery disease, angina pectoris. 3. Hypertension. 4. Diabetes mellitus. 5. Hypercholesterolemia. 6. Acute on chronic kidney disease. 7. Anemia. RECOMMENDATION: 1. Continuation of Bystolic therapy. 2. Ideally, patient should be on DAVI inhibitor or angiotensin receptor wes once kidney function at baseline. 3. Continuation of IV Lasix with caution and close monitoring of renal function. 4. Continuation of Lipitor therapy. 5. Addition of aspirin, unless it is absolutely contraindicated. Thank you for your referral. ELBA GROVER M.D. [id number]
[2018-08-12 15:34] VITALS: BMI 31.6
--- NOTE | 2018-08-12 17:40 | PN ---
Progress Note, Physician History of Present Illness: Pt seen and examined at bedside. She is awake and alert. She feels that her breathing is mildly improved. - Current Medication List Current Medications: Active Medications Atorvastatin Calcium (Lipitor -) 40 mg PO HS [facility] Last Admin: 08/12/18 00:14 Dose: 40 mg Furosemide (Lasix Injection -) 40 mg IVPUSH DAILY [facility] Last Admin: 08/12/18 09:03 Dose: 40 mg Heparin Sodium (Porcine) (Heparin -) 5,000 unit SQ TID [facility] Last Admin: 08/12/18 13:38 Dose: 5,000 unit Insulin Aspart (Novolog Vial Sliding Scale -) 1 vial SQ ACHS [facility]; Protocol Last Admin: 08/12/18 16:53 Dose: 4 units Insulin Detemir (Levemir Vial) 10 units SQ HS [facility] Last Admin: 08/12/18 00:14 Dose: 10 units Nebivolol (Bystolic -) 10 mg PO DAILY [facility] Last Admin: 08/12/18 09:03 Dose: 10 mg - Objective Vital Signs: Vital Signs Temperature 97.2 F L 08/12/18 10:00 Pulse Rate 57 L 08/12/18 10:00 Respiratory Rate 20 08/12/18 10:00 Blood Pressure 135/61 08/12/18 10:00 O2 Sat by Pulse Oximetry (%) 92 L 08/12/18 09:00 Constitutional: Yes: Calm Eyes: Yes: Conjunctiva Clear HENT: Yes: Atraumatic Neck: Yes: Supple Cardiovascular: Yes: S1, S2 Respiratory: Yes: On Nasal O2 Gastrointestinal: Yes: Soft, Abdomen, Obese Musculoskeletal: Yes: WNL Edema: Yes Edema: LLE: 1+, RLE: 1+ Neurological: Yes: Oriented Labs: CBC, BMP 08/12/18 06:18 08/12/18 06:18 INR, PTT INR 1.12 (0.83-1.09) H 08/11/18 05:30 Problem List - Problems (1) Hyperkalemia Code(s): E87.5 - HYPERKALEMIA (2) Diabetes mellitus Code(s): E11.9 - TYPE 2 DIABETES MELLITUS WITHOUT COMPLICATIONS (3) HTN (hypertension) Code(s): I10 - ESSENTIAL (PRIMARY) HYPERTENSION Assessment/Plan Current Medications Generic Name Dose Route Start Last Admin Trade Name Freq PRN Reason Stop Dose Admin Atorvastatin Calcium 40 mg 08/11/18 22:00 08/12/18 00:14 Lipitor - PO 40 mg HS DEREK Administration Furosemide 40 mg 08/12/18 10:00 08/12/18 09:03 Lasix Injection - IVPUSH 40 mg DAILY DEREK Administration Heparin Sodium (Porcine) 5,000 unit 08/12/18 06:00 08/12/18 13:38 Heparin - SQ 5,000 unit TID DEREK Administration Insulin Aspart 1 vial 08/11/18 16:30 08/12/18 16:53 Novolog Vial Sliding Scale - SQ 4 units ACHS DEREK Administration Protocol Insulin Detemir 10 units 08/11/18 22:00 08/12/18 00:14 Levemir Vial SQ 10 units HS DEREK Administration Nebivolol 10 mg 08/12/18 10:00 08/12/18 09:03 Bystolic - PO 10 mg DAILY DEREK Administration Impression 1. hyperkalemia 2. ckd vs dona - unclear baseline services tech 3. pleural effusion 4. htn 5. DM 6. hx fatty liver Plan - cont with lasix - renal function stable, will follow - potassium stable - keep lisinopril on hold - will monitor volume status closely
[2018-08-12] MEDS ORDERED: CHLORHEXIDINE GLUCONATE 4% CLEANSER FOR DECOLONIZATION TP SCH (22:00)
[2018-08-13] MEDS: HEPARIN NA (PORCINE) 5,000 UNITS/ML 1ML VIAL SQ SCH ×3 (06:27→22:04)
[2018-08-13] MEDS: INSULIN SLIDING SCALE (NOVOLOG) 1 VIAL SQ SCH ×4 (06:31→22:05)
--- NOTE | 2018-08-13 09:11 | PN ---
Progress Note, Physician History of Present Illness: Dyspnea resolving with diuresis, denies chest pain. - Current Medication List Current Medications: Active Medications Atorvastatin Calcium (Lipitor -) 40 mg PO HS [facility] Last Admin: 08/12/18 22:11 Dose: 40 mg Furosemide (Lasix Injection -) 40 mg IVPUSH DAILY [facility] Last Admin: 08/12/18 09:03 Dose: 40 mg Heparin Sodium (Porcine) (Heparin -) 5,000 unit SQ TID [facility] Last Admin: 08/13/18 06:27 Dose: 5,000 unit Insulin Aspart (Novolog Vial Sliding Scale -) 1 vial SQ ACHS [facility]; Protocol Last Admin: 08/13/18 06:31 Dose: 2 units Insulin Detemir (Levemir Vial) 10 units SQ [facility] Last Admin: 08/12/18 22:13 Dose: 10 units Nebivolol (Bystolic -) 10 mg PO DAILY [facility] Last Admin: 08/12/18 09:03 Dose: 10 mg - Objective Vital Signs: Vital Signs Temperature 97.9 F 08/13/18 06:00 Pulse Rate 75 08/13/18 06:00 Respiratory Rate 20 08/13/18 06:00 Blood Pressure 136/58 L 08/13/18 06:00 O2 Sat by Pulse Oximetry (%) 94 L 08/13/18 06:00 Constitutional: Yes: No Distress, Calm Neck: Yes: Supple Cardiovascular: Yes: Regular Rate and Rhythm Respiratory: Yes: Regular, Diminished Gastrointestinal: Yes: Normal Bowel Sounds, Soft, Abdomen, Obese Edema: No Labs: CBC, BMP 08/12/18 06:18 08/12/18 06:18 INR, PTT INR 1.12 (0.83-1.09) H 08/11/18 05:30 - ....Imaging EKG: Report Reviewed (Tele: NSR) Problem List - Problems (1) CYNTHIA (acute kidney injury) Code(s): N17.9 - ACUTE KIDNEY FAILURE, UNSPECIFIED (2) CHF (congestive heart failure) Code(s): I50.9 - HEART FAILURE, UNSPECIFIED Qualifiers: Heart failure type: diastolic Heart failure chronicity: acute on chronic Qualified Code(s): I50.33 - Acute on chronic diastolic (congestive) heart failure (3) Diabetes mellitus Code(s): E11.9 - TYPE 2 DIABETES MELLITUS WITHOUT COMPLICATIONS Qualifiers: Diabetes mellitus type: type 2 Diabetes mellitus complication status: with kidney complications Diabetes mellitus complication detail: with other kidney complication (4) HTN (hypertension) Code(s): I10 - ESSENTIAL (PRIMARY) HYPERTENSION Qualifiers: Hypertension type: essential hypertension Qualified Code(s): I10 - Essential (primary) hypertension (5) Hyperkalemia Code(s): E87.5 - HYPERKALEMIA (6) Pleural effusion Code(s): J90 - PLEURAL EFFUSION, NOT ELSEWHERE CLASSIFIED (7) Hyperlipidemia Code(s): E78.5 - HYPERLIPIDEMIA, UNSPECIFIED Qualifiers: Hyperlipidemia type: pure hypercholesterolemia Qualified Code(s): E78.00 - Pure hypercholesterolemia, unspecified; E78.0 - Pure hypercholesterolemia Assessment/Plan 1. Acute on chronic II-III NYHA classification diastolic LV failure, resolving 2. CAD angina pectoris 3. HTN 4. DM 5. Hypercholesterolemia 6. Acute on chronic kidney disease resolving 7. Anemia PLAN: 1. Continue Bystolic 10 qd 2. Off DAVI-I or ARBS due to hyperkalemia 3. Continue IV Lasix with caution and close monitoring of renal function 4. Continue Lipitor 40 qhs 5. Add ASA unless it is contraindicated 6. No clinical indications at this point for repeat thoracentesis unless pleural effusion persists and/or increases 7. F/u echo results
[2018-08-13] MEDS: NEBIVOLOL 10 MG TABLET (FP) PO SCH (09:46)
[2018-08-13] MEDS: FUROSEMIDE 40 MG/4 ML INJECTABLE VIAL IVPUSH SCH ×2 (09:46→17:39)
--- NOTE | 2018-08-13 11:05 | EKG ---
Test Reason : Blood Pressure : / mmHG Vent. Rate : 067 BPM Atrial Rate : 067 BPM P-R Int : 122 ms QRS Dur : 086 ms QT Int : 404 ms P-R-T Axes : 061 059 083 degrees QTc Int : 426 ms NORMAL SINUS RHYTHM NONSPECIFIC T WAVE ABNORMALITY ABNORMAL ECG NO PREVIOUS ECGS AVAILABLE Confirmed by ERYN LEONARD, KENDRA ([id number]) on 08/13/2018 11:05:01 AM Referred By: Confirmed By:KENDRA CERNA MD
--- NOTE | 2018-08-13 11:21 | PN ---
Progress Note, Physician History of Present Illness: pulmonary alert,confused,oob-chair,O2 sat 95% on nasal cannula - Current Medication List Current Medications: Active Medications Atorvastatin Calcium (Lipitor -) 40 mg PO HS [facility] Last Admin: 08/12/18 22:11 Dose: 40 mg Furosemide (Lasix Injection -) 40 mg IVPUSH DAILY [facility] Last Admin: 08/13/18 09:46 Dose: 40 mg Heparin Sodium (Porcine) (Heparin -) 5,000 unit SQ TID [facility] Last Admin: 08/13/18 06:27 Dose: 5,000 unit Insulin Aspart (Novolog Vial Sliding Scale -) 1 vial SQ ACHS [facility]; Protocol Last Admin: 08/13/18 06:31 Dose: 2 units Insulin Detemir (Levemir Vial) 10 units SQ [facility] Last Admin: 08/12/18 22:13 Dose: 10 units Nebivolol (Bystolic -) 10 mg PO DAILY [facility] Last Admin: 08/13/18 09:46 Dose: 10 mg - Objective Vital Signs: Vital Signs Temperature 97.6 F 08/13/18 10:00 Pulse Rate 62 08/13/18 10:00 Respiratory Rate 20 08/13/18 10:00 Blood Pressure 155/64 08/13/18 10:00 O2 Sat by Pulse Oximetry (%) 94 L 08/13/18 09:00 Constitutional: Yes: Well Nourished, Calm, Other (confused) Eyes: Yes: WNL HENT: Yes: WNL Neck: Yes: WNL Cardiovascular: Yes: Regular Rate and Rhythm, S1, S2 Respiratory: Yes: Rales (few crackles) Gastrointestinal: Yes: Normal Bowel Sounds, Soft Extremities: Yes: WNL Edema: No Labs: CBC, BMP 08/12/18 06:18 08/12/18 06:18 INR, PTT INR 1.12 (0.83-1.09) H 08/11/18 05:30 Assessment/Plan ASSESSMENT/PLAN: Suspected CHF as the etiology of the bilateral pleural effusions Diabetes Hypertension Hyperlipidemia Fatty liver Possible component of hemothorax on the right No PTX HTN Hyperkalemia Lasix Follow H & H Strict I & O O2 as needed ECHO pending pt refused earlier today OOB to chair Glycemic control DR OTOOLE
--- NOTE | 2018-08-13 12:39 | PN ---
Progress Note (short form) - Note Progress Note: pt seen/ examined all f/u noted/ discussed with Dr Mims also son at bedside-- concerned about Thoracocentesis-- not willing yet wants to do cxr first-- which is ordered already had hypoxia earlier today on room air at present comfortable Vital Signs Temp 97.6 F 08/13/18 10:00 Pulse 62 08/13/18 10:00 Resp 20 08/13/18 10:00 BP 155/64 08/13/18 10:00 Pulse Ox 94 L 08/13/18 09:00 Intake & Output 08/12/18 08/13/18 08/13/18 23:59 11:59 23:59 Intake Total 910 260 Balance 910 260 Weight 173 lb 172 lb 6.4 oz Intake: IV 10 10 #2 10 10 Oral 900 250 Other: Voiding Method Toilet Toilet # Unmeasured Voids Void 3 3 Bowel Movement No No Height 5 ft 2 in Body Mass Index (BMI) 31.6 Weight Measurement Method Standing Scale Active Medications Atorvastatin Calcium (Lipitor -) 40 mg PO HS [facility] Last Admin: 08/12/18 22:11 Dose: 40 mg Furosemide (Lasix Injection -) 40 mg IVPUSH DAILY [facility] Last Admin: 08/13/18 09:46 Dose: 40 mg Heparin Sodium (Porcine) (Heparin -) 5,000 unit SQ TID [facility] Last Admin: 08/13/18 06:27 Dose: 5,000 unit Insulin Aspart (Novolog Vial Sliding Scale -) 1 vial SQ ACHS [facility]; Protocol Last Admin: 08/13/18 11:52 Dose: 2 units Insulin Detemir (Levemir Vial) 10 units SQ HS [facility] Last Admin: 08/12/18 22:13 Dose: 10 units Nebivolol (Bystolic -) 10 mg PO DAILY [facility] Last Admin: 08/13/18 09:46 Dose: 10 mg CBC, BMP 08/12/18 06:18 08/12/18 06:18 echo-- pending cxr - pending abg - ordered Physical Exam Constitutional: Yes: No Distress, Calm. Eyes: Yes: Conjunctiva Clear Neck: Yes: Supple Cardiovascular: Yes: Regular Rate and Rhythm Respiratory: Yes: Diminished Gastrointestinal: Yes: Soft Edema: No Neurological: Yes: Alert Assessment/Plan clinically stable continue present care Likely chf exac increase lasix echo pending cardiology on case lasheather Discussed with Dr. Mims and son also today monitor bgm will follow. Discussed with nursing staff also. Problem List - Problems (1) CYNTHIA (acute kidney injury) Code(s): N17.9 - ACUTE KIDNEY FAILURE, UNSPECIFIED (2) CHF (congestive heart failure) Code(s): I50.9 - HEART FAILURE, UNSPECIFIED Qualifiers: Heart failure type: diastolic Heart failure chronicity: acute on chronic Qualified Code(s): I50.33 - Acute on chronic diastolic (congestive) heart failure (3) Diabetes mellitus Code(s): E11.9 - TYPE 2 DIABETES MELLITUS WITHOUT COMPLICATIONS Qualifiers: Diabetes mellitus type: type 2 Diabetes mellitus complication status: with kidney complications Diabetes mellitus complication detail: with other kidney complication (4) HTN (hypertension) Code(s): I10 - ESSENTIAL (PRIMARY) HYPERTENSION Qualifiers: Hypertension type: essential hypertension Qualified Code(s): I10 - Essential (primary) hypertension (5) Hyperkalemia Code(s): E87.5 - HYPERKALEMIA (6) Pleural effusion Code(s): J90 - PLEURAL EFFUSION, NOT ELSEWHERE CLASSIFIED
[2018-08-13 12:58] LABS: ARTERIAL BLD GAS O2 SATURATION 96.1 % (90-98.9); ARTERIAL BLOOD GAS BASE EXCESS 7.4 meq/l (-2-2); ARTERIAL BLOOD GAS PCO2 55.6 mmHg (35-45); ARTERIAL BLOOD GAS PO2 87.5 mmHg (70-100); ARTERIAL BLOOD GAS pH 7.39 (7.35-7.45)
[2018-08-13 13:00] LABS: ALLENS TEST POSITIVE
--- NOTE | 2018-08-13 15:15 | PN ---
Progress Note, Physician History of Present Illness: Pt seen and examined at bedside. She is awake and alert. She is out of bed to chair. - Current Medication List Current Medications: Active Medications Atorvastatin Calcium (Lipitor -) 40 mg PO HS [facility] Last Admin: 08/12/18 22:11 Dose: 40 mg Furosemide (Lasix Injection -) 40 mg IVPUSH DAILY [facility] Last Admin: 08/13/18 09:46 Dose: 40 mg Heparin Sodium (Porcine) (Heparin -) 5,000 unit SQ TID [facility] Last Admin: 08/13/18 14:55 Dose: 5,000 unit Insulin Aspart (Novolog Vial Sliding Scale -) 1 vial SQ ACHS [facility]; Protocol Last Admin: 08/13/18 11:52 Dose: 2 units Insulin Detemir (Levemir Vial) 10 units SQ HS [facility] Last Admin: 08/12/18 22:13 Dose: 10 units Nebivolol (Bystolic -) 10 mg PO DAILY [facility] Last Admin: 08/13/18 09:46 Dose: 10 mg - Objective Vital Signs: Vital Signs Temperature 97.6 F 08/13/18 10:00 Pulse Rate 62 08/13/18 10:00 Respiratory Rate 20 08/13/18 10:00 Blood Pressure 155/64 08/13/18 10:00 O2 Sat by Pulse Oximetry (%) 94 L 08/13/18 09:00 Constitutional: Yes: Calm Eyes: Yes: Conjunctiva Clear HENT: Yes: Atraumatic Neck: Yes: Supple Cardiovascular: Yes: S1, S2 Respiratory: Yes: On Nasal O2 Gastrointestinal: Yes: Normal Bowel Sounds, Soft, Abdomen, Obese Genitourinary: Yes: WNL Edema: Yes Edema: LLE: 1+, RLE: 1+ Neurological: Yes: Oriented Psychiatric: Yes: Oriented Labs: CBC, BMP 08/12/18 06:18 08/12/18 06:18 INR, PTT INR 1.12 (0.83-1.09) H 08/11/18 05:30 Problem List - Problems (1) Hyperkalemia Code(s): E87.5 - HYPERKALEMIA (2) Diabetes mellitus Code(s): E11.9 - TYPE 2 DIABETES MELLITUS WITHOUT COMPLICATIONS Qualifiers: Diabetes mellitus type: type 2 Diabetes mellitus complication status: with kidney complications Diabetes mellitus complication detail: with other kidney complication (3) HTN (hypertension) Code(s): I10 - ESSENTIAL (PRIMARY) HYPERTENSION Qualifiers: Hypertension type: essential hypertension Qualified Code(s): I10 - Essential (primary) hypertension Assessment/Plan Current Medications Generic Name Dose Route Start Last Admin Trade Name Faith PRN Reason Stop Dose Admin Atorvastatin Calcium 40 mg 08/11/18 22:00 08/12/18 22:11 Lipitor - PO 40 mg HS DEREK Administration Furosemide 40 mg 08/12/18 10:00 08/13/18 09:46 Lasix Injection - IVPUSH 40 mg DAILY DEREK Administration Heparin Sodium (Porcine) 5,000 unit 08/12/18 06:00 08/13/18 14:55 Heparin - SQ 5,000 unit TID DEREK Administration Insulin Aspart 1 vial 08/11/18 16:30 08/13/18 11:52 Novolog Vial Sliding Scale - SQ 2 units ACHS DEREK Administration Protocol Insulin Detemir 10 units 08/11/18 22:00 08/12/18 22:13 Levemir Vial SQ 10 units HS DEREK Administration Nebivolol 10 mg 08/12/18 10:00 08/13/18 09:46 Bystolic - PO 10 mg DAILY DEREK Administration Impression 1. hyperkalemia 2. ckd vs dona - unclear baseline water tester 3. pleural effusion 4. htn 5. DM 6. hx fatty liver Plan - check bmp - monitor renal function - cont lasix - lisinopril on hold
--- NOTE | 2018-08-13 18:14 | CONSULT ---
Consult Consult Specialty:: Thoracic surgery Reason for Consultation:: Pleural effusion - History of Present Illness Chief Complaint: Shortness of breath History of Present Illness: This is a 78 y/o woman with a PMHx of HTN, DM, Hyperlipidemia, Fatty Liver. Who presents to the ED with generalized weakness and shortness of breath on ambulation that began about 5 days prior to admiaaion. Son at bedside assisted with history. She described a viral syndrome that she had on Monday where she had an episode of vomiting and one episode of diarrhea. She was able to tolerate diet since Monday last week. Pt denies history of CKD. She was found to be hyperkalemic in the ER . CT chest reveales bilateral pleural effusion R> L. Attempt for thoracocentesis in ED failed.She has been on lisinopril 20 mg daily at home. She denies chest pain or palpitations. - History Source History Provided By: Family Member Limitations to Obtaining History: No Limitations - Past Medical History Cardio/Vascular: Yes: HTN, Hyperlipdemia Hepatobiliary: Yes: Other (fatty liver) Endocrine: Yes: Diabetes Mellitus - Alcohol/Substance Use Hx Alcohol Use: No History of Substance Use: reports: None - Smoking History Smoking history: Never smoked - Social History ADL: Family Assistance History of Recent Travel: No Home Medications - Allergies Allergies/Adverse Reactions: Allergies Allergy/AdvReac Type Severity Reaction Status Date / Time No Known Allergies Allergy Verified 08/10/18 11:14 - Home Medications Home Medications: Ambulatory Orders Aspirin 81 mg PO DAILY 08/10/18 Insulin NPH Hum/Reg Insulin Hm [Novolin 70-30 Flexpen] 0 unit SQ ASDIR 08/10/18 Lisinopril [Prinivil] 20 mg PO DAILY 08/10/18 Nebivolol HCl [Bystolic] 10 mg PO DAILY 08/10/18 Family Disease History - Family Disease History Family Disease History: Other: Father Review of Systems - Review of Systems Constitutional: reports: No Symptoms Eyes: reports: No Symptoms HENT: reports: No Symptoms Neck: reports: No Symptoms Respiratory: reports: SOB on Exertion Gastrointestinal: reports: No Symptoms Physical Exam Vital Signs: Vital Signs Temperature 97.6 F 08/13/18 10:00 Pulse Rate 70 08/13/18 14:00 Respiratory Rate 20 08/13/18 14:00 Blood Pressure 140/50 L 08/13/18 14:00 O2 Sat by Pulse Oximetry (%) 94 L 08/13/18 09:00 Constitutional: Yes: Obese Eyes: Yes: Conjunctiva Clear HENT: Yes: WNL, Atraumatic, Normocephalic Neck: Yes: WNL Cardiovascular: Yes: Regular Rate and Rhythm Respiratory: Yes: Regular, CTA Bilaterally Gastrointestinal: Yes: Normal Bowel Sounds Edema: LLE: 1+, RLE: 1+ Neurological: Yes: Alert, Oriented Labs: CBC, BMP 08/12/18 06:18 08/12/18 06:18 Imaging - Results Chest X-ray: Report Reviewed, Image Reviewed Cat Scan: Image Reviewed EKG: Report Reviewed Problem List - Problems (1) CYNTHIA (acute kidney injury) Code(s): N17.9 - ACUTE KIDNEY FAILURE, UNSPECIFIED (2) CHF (congestive heart failure) Code(s): I50.9 - HEART FAILURE, UNSPECIFIED Qualifiers: Heart failure type: diastolic Heart failure chronicity: acute on chronic Qualified Code(s): I50.33 - Acute on chronic diastolic (congestive) heart failure (3) Diabetes mellitus Code(s): E11.9 - TYPE 2 DIABETES MELLITUS WITHOUT COMPLICATIONS Qualifiers: Diabetes mellitus type: type 2 Diabetes mellitus complication status: with kidney complications Diabetes mellitus complication detail: with other kidney complication (4) HTN (hypertension) Code(s): I10 - ESSENTIAL (PRIMARY) HYPERTENSION Qualifiers: Hypertension type: essential hypertension Qualified Code(s): I10 - Essential (primary) hypertension (5) Hyperkalemia Code(s): E87.5 - HYPERKALEMIA (6) Hyperlipidemia Code(s): E78.5 - HYPERLIPIDEMIA, UNSPECIFIED Qualifiers: Hyperlipidemia type: pure hypercholesterolemia Qualified Code(s): E78.00 - Pure hypercholesterolemia, unspecified; E78.0 - Pure hypercholesterolemia (7) Pleural effusion Code(s): J90 - PLEURAL EFFUSION, NOT ELSEWHERE CLASSIFIED Assessment/Plan 78 Y/O F with bilateral pleural effusion R>L on CT chest was admitted for failure to thrive and shortness of breath. She was found to have hyperkalemia and CYNTHIA. Diuresis was initiated with lasix. Patient is feeling better today. CXR looks [id number] with less effusion. patient refused Thoracocentesis. At this time no indication for Thoracic surgery intervention. Recommend TTE . Thank you for courtesy of this referral. Will follow PRN. Yoli Leija
[2018-08-13] MEDS: INSULIN (LEVEMIR) 100 UNITS/ML UNITS SQ SCH (22:04)
[2018-08-13] MEDS: ATORVASTATIN CA 40 MG TABLET (FP) PO SCH (22:04)
[2018-08-14] MEDS: INSULIN SLIDING SCALE (NOVOLOG) 1 VIAL SQ SCH ×4 (06:06→22:39)
[2018-08-14] MEDS: HEPARIN NA (PORCINE) 5,000 UNITS/ML 1ML VIAL SQ SCH ×3 (06:06→22:39)
[2018-08-14] MEDS: FUROSEMIDE 40 MG/4 ML INJECTABLE VIAL IVPUSH SCH ×2 (06:06→14:39)
[2018-08-14] MEDS: NEBIVOLOL 10 MG TABLET (FP) PO SCH (09:41)
--- NOTE | 2018-08-14 11:10 | PN ---
Progress Note (short form) - Note Progress Note: Events noted No sob refusing thoracocentesis, actually effusion are decreased with Lasix Vital Signs - 24 hr 08/13/18 08/13/18 08/13/18 14:00 18:00 20:53 Temperature 98.0 F Pulse Rate 70 63 Respiratory 20 18 Rate Blood Pressure 140/50 L 148/72 O2 Sat by Pulse 98 Oximetry (%) 08/13/18 08/14/18 08/14/18 20:54 02:00 05:53 Temperature 98.6 F 98.1 F 98.4 F Pulse Rate 62 60 64 Respiratory 20 20 20 Rate Blood Pressure 148/66 144/54 L 162/67 O2 Sat by Pulse Oximetry (%) 08/14/18 08/14/18 08/14/18 08:48 08:57 09:00 Temperature 98.4 F Pulse Rate 61 Respiratory 20 20 Rate Blood Pressure 178/65 H O2 Sat by Pulse 96 96 Oximetry (%) Current Medications Generic Name Dose Route Start Last Admin Trade Name Freq PRN Reason Stop Dose Admin Atorvastatin Calcium 40 mg 08/11/18 22:00 08/13/18 22:04 Lipitor - PO 40 mg HS DEREK Administration Furosemide 40 mg 08/13/18 17:00 08/14/18 06:06 Lasix Injection - IVPUSH 40 mg BIDLASIX DEREK Administration Heparin Sodium (Porcine) 5,000 unit 08/12/18 06:00 08/14/18 06:06 Heparin - SQ 5,000 unit TID DEREK Administration Insulin Aspart 1 vial 08/11/18 16:30 08/14/18 06:06 Novolog Vial Sliding Scale - SQ 2 units ACHS DEREK Administration Protocol Insulin Detemir 10 units 08/11/18 22:00 08/13/18 22:04 Levemir Vial SQ 10 units HS DEREK Administration Nebivolol 10 mg 08/12/18 10:00 08/14/18 09:41 Bystolic - PO 10 mg DAILY DEREK Administration Laboratory Results - last 24 hr 08/13/18 08/13/18 08/13/18 11:41 12:44 16:51 Puncture Site Left radial ABG pH 7.39 ABG pCO2 at Pt Temp 55.6 H ABG pO2 at Pt Temp 87.5 ABG HCO3 33.2 H ABG O2 Sat (Measured) 96.1 ABG O2 Content 13.5 L ABG Base Excess 7.4 H Ovidio Test Positive O2 Delivery Device Nasal cannula Oxygen Flow Rate 3.5l POC Glucometer 176 195 08/13/18 08/14/18 22:01 05:07 Puncture Site ABG pH ABG pCO2 at Pt Temp ABG pO2 at Pt Temp ABG HCO3 ABG O2 Sat (Measured) ABG O2 Content ABG Base Excess Ovidio Test O2 Delivery Device Oxygen Flow Rate POC Glucometer 263 180 S1 s2 RRR Lungs decreased Abd- soft, NT No edema PLAN Cardiothoracic surgeon eval noted CXR noted -- improved effusion OOB PT eval continued with LASIX IV BID monitor renal function Problem List - Problems (1) CYNTHIA (acute kidney injury) Code(s): N17.9 - ACUTE KIDNEY FAILURE, UNSPECIFIED (2) CHF (congestive heart failure) Code(s): I50.9 - HEART FAILURE, UNSPECIFIED Qualifiers: Heart failure type: diastolic Heart failure chronicity: acute on chronic Qualified Code(s): I50.33 - Acute on chronic diastolic (congestive) heart failure (3) Diabetes mellitus Code(s): E11.9 - TYPE 2 DIABETES MELLITUS WITHOUT COMPLICATIONS Qualifiers: Diabetes mellitus type: type 2 Diabetes mellitus complication status: with kidney complications Diabetes mellitus complication detail: with other kidney complication (4) HTN (hypertension) Code(s): I10 - ESSENTIAL (PRIMARY) HYPERTENSION Qualifiers: Hypertension type: essential hypertension Qualified Code(s): I10 - Essential (primary) hypertension (5) Pleural effusion Code(s): J90 - PLEURAL EFFUSION, NOT ELSEWHERE CLASSIFIED
--- NOTE | 2018-08-14 11:23 | PN ---
Progress Note, Physician History of Present Illness: PULMONARY ALERT,NO DISTRESS,-SOB,O2 SAT 98% ON NASAL CANNULA - Current Medication List Current Medications: Active Medications Atorvastatin Calcium (Lipitor -) 40 mg PO HS [facility] Last Admin: 08/13/18 22:04 Dose: 40 mg Furosemide (Lasix Injection -) 40 mg IVPUSH BIDLASIX [facility] Last Admin: 08/14/18 06:06 Dose: 40 mg Heparin Sodium (Porcine) (Heparin -) 5,000 unit SQ TID [facility] Last Admin: 08/14/18 06:06 Dose: 5,000 unit Insulin Aspart (Novolog Vial Sliding Scale -) 1 vial SQ ACHS [facility]; Protocol Last Admin: 08/14/18 06:06 Dose: 2 units Insulin Detemir (Levemir Vial) 10 units SQ [facility] Last Admin: 08/13/18 22:04 Dose: 10 units Nebivolol (Bystolic -) 10 mg PO DAILY [facility] Last Admin: 08/14/18 09:41 Dose: 10 mg - Objective Vital Signs: Vital Signs Temperature 98.4 F 08/14/18 08:57 Pulse Rate 61 08/14/18 08:57 Respiratory Rate 20 08/14/18 08:57 Blood Pressure 178/65 H 08/14/18 08:57 O2 Sat by Pulse Oximetry (%) 96 08/14/18 09:00 Constitutional: Yes: Well Nourished, Calm Eyes: Yes: WNL HENT: Yes: WNL Neck: Yes: WNL Cardiovascular: Yes: Regular Rate and Rhythm, S1, S2 Respiratory: Yes: Rales (FEW BIBASILAR CRACKLES) Gastrointestinal: Yes: Normal Bowel Sounds, Soft Extremities: Yes: WNL Edema: No Assessment/Plan ASSESSMENT/PLAN: HYPOXEMIA CHF as the etiology of the bilateral pleural effusions Diabetes Hypertension Hyperlipidemia Fatty liver Possible component of hemothorax on the right No PTX HTN Hyperkalemia Lasix BID Follow H & H Strict I & O O2 as needed ECHO pending OOB to chair Glycemic control f/u chest x-rays DR OTOOLE
--- NOTE | 2018-08-14 13:45 | PN ---
Progress Note, Physician History of Present Illness: Pt seen and examined at bedside. She is awake and alert. She is eager to go home. She denies shortness of breath. - Current Medication List Current Medications: Active Medications Atorvastatin Calcium (Lipitor -) 40 mg PO HS [facility] Last Admin: 08/13/18 22:04 Dose: 40 mg Furosemide (Lasix Injection -) 40 mg IVPUSH BIDLASIX [facility] Last Admin: 08/14/18 06:06 Dose: 40 mg Heparin Sodium (Porcine) (Heparin -) 5,000 unit SQ TID [facility] Last Admin: 08/14/18 06:06 Dose: 5,000 unit Insulin Aspart (Novolog Vial Sliding Scale -) 1 vial SQ ACHS [facility]; Protocol Last Admin: 08/14/18 11:27 Dose: 4 units Insulin Detemir (Levemir Vial) 10 units SQ HS [facility] Last Admin: 08/13/18 22:04 Dose: 10 units Nebivolol (Bystolic -) 10 mg PO DAILY [facility] Last Admin: 08/14/18 09:41 Dose: 10 mg - Objective Vital Signs: Vital Signs Temperature 98.4 F 08/14/18 08:57 Pulse Rate 55 L 08/14/18 12:17 Respiratory Rate 17 08/14/18 12:17 Blood Pressure 141/53 L 08/14/18 12:17 O2 Sat by Pulse Oximetry (%) 96 08/14/18 09:00 Constitutional: Yes: Calm Eyes: Yes: Conjunctiva Clear HENT: Yes: Atraumatic Neck: Yes: Supple Cardiovascular: Yes: S1, S2 Respiratory: Yes: On Nasal O2 Gastrointestinal: Yes: Normal Bowel Sounds, Soft Genitourinary: Yes: WNL Musculoskeletal: Yes: WNL Edema: Yes Edema: LLE: 1+, RLE: 1+ Neurological: Yes: Oriented Psychiatric: Yes: Oriented Labs: CBC, BMP 08/12/18 06:18 08/12/18 06:18 INR, PTT INR 1.12 (0.83-1.09) H 08/11/18 05:30 Problem List - Problems (1) Hyperkalemia Code(s): E87.5 - HYPERKALEMIA (2) Diabetes mellitus Code(s): E11.9 - TYPE 2 DIABETES MELLITUS WITHOUT COMPLICATIONS Qualifiers: Diabetes mellitus type: type 2 Diabetes mellitus complication status: with kidney complications Diabetes mellitus complication detail: with other kidney complication (3) HTN (hypertension) Code(s): I10 - ESSENTIAL (PRIMARY) HYPERTENSION Qualifiers: Hypertension type: essential hypertension Qualified Code(s): I10 - Essential (primary) hypertension Assessment/Plan Current Medications Generic Name Dose Route Start Last Admin Trade Name Freq PRN Reason Stop Dose Admin Atorvastatin Calcium 40 mg 08/11/18 22:00 08/13/18 22:04 Lipitor - PO 40 mg HS DEREK Administration Furosemide 40 mg 08/13/18 17:00 08/14/18 06:06 Lasix Injection - IVPUSH 40 mg BIDLASIX DEREK Administration Heparin Sodium (Porcine) 5,000 unit 08/12/18 06:00 08/14/18 06:06 Heparin - SQ 5,000 unit TID DEREK Administration Insulin Aspart 1 vial 08/11/18 16:30 08/14/18 11:27 Novolog Vial Sliding Scale - SQ 4 units ACHS DEREK Administration Protocol Insulin Detemir 10 units 08/11/18 22:00 08/13/18 22:04 Levemir Vial SQ 10 units HS DEREK Administration Nebivolol 10 mg 08/12/18 10:00 08/14/18 09:41 Bystolic - PO 10 mg DAILY DEREK Administration Impression 1. hyperkalemia 2. 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 pleural effusion 4. htn 5. DM 6. hx fatty liver Plan - no new labs - will order bmp - monitor renal function - cont lasix - lisinopril on hold - check potassium
--- NOTE | 2018-08-14 14:17 | PN ---
Progress Note, Physician Chief Complaint: Events noted Not in distress History of Present Illness: Patient was seen and examined. Awake and alert. Chart was reviewed Denies chest pain or palpitations. Less SOB - Current Medication List Current Medications: Active Medications Atorvastatin Calcium (Lipitor -) 40 mg PO HS [facility] Last Admin: 08/13/18 22:04 Dose: 40 mg Furosemide (Lasix Injection -) 40 mg IVPUSH BIDLASIX [facility] Last Admin: 08/14/18 06:06 Dose: 40 mg Heparin Sodium (Porcine) (Heparin -) 5,000 unit SQ TID [facility] Last Admin: 08/14/18 06:06 Dose: 5,000 unit Insulin Aspart (Novolog Vial Sliding Scale -) 1 vial SQ ACHS [facility]; Protocol Last Admin: 08/14/18 11:27 Dose: 4 units Insulin Detemir (Levemir Vial) 10 units SQ [facility] Last Admin: 08/13/18 22:04 Dose: 10 units Nebivolol (Bystolic -) 10 mg PO DAILY [facility] Last Admin: 08/14/18 09:41 Dose: 10 mg - Objective Vital Signs: Vital Signs Temperature 98.4 F 08/14/18 08:57 Pulse Rate 55 L 08/14/18 12:17 Respiratory Rate 17 08/14/18 12:17 Blood Pressure 141/53 L 08/14/18 12:17 O2 Sat by Pulse Oximetry (%) 96 08/14/18 09:00 Constitutional: Yes: No Distress Eyes: Yes: PERRL HENT: Yes: Atraumatic Neck: Yes: Supple Cardiovascular: Yes: Regular Rate and Rhythm, S1, S2 Respiratory: Yes: Diminished Edema: No Additional Findings/Remarks: - Review of Systems Constitutional: denies: Chills, Fever Cardiovascular: reports: Shortness of Breath. denies: Chest Pain, Palpitations Respiratory: reports: SOB, SOB on Exertion. denies: Cough, Hemoptysis, Orthopnea, PND Gastrointestinal: denies: Abdominal Pain, Constipation, Diarrhea, Melena, Nausea , Rectal Bleeding, Vomiting Musculoskeletal: denies: Back Pain, Joint Pain Neurological: denies: Dizziness, Headache, Seizure, Syncope Problem List - Problems (1) CYNTHIA (acute kidney injury) Code(s): N17.9 - ACUTE KIDNEY FAILURE, UNSPECIFIED (2) CHF (congestive heart failure) Code(s): I50.9 - HEART FAILURE, UNSPECIFIED Qualifiers: Heart failure type: diastolic Heart failure chronicity: acute on chronic Qualified Code(s): I50.33 - Acute on chronic diastolic (congestive) heart failure (3) Diabetes mellitus Code(s): E11.9 - TYPE 2 DIABETES MELLITUS WITHOUT COMPLICATIONS Qualifiers: Diabetes mellitus type: type 2 Diabetes mellitus complication status: with kidney complications Diabetes mellitus complication detail: with other kidney complication (4) HTN (hypertension) Code(s): I10 - ESSENTIAL (PRIMARY) HYPERTENSION Qualifiers: Hypertension type: essential hypertension Qualified Code(s): I10 - Essential (primary) hypertension (5) Hyperkalemia Code(s): E87.5 - HYPERKALEMIA (6) Hyperlipidemia Code(s): E78.5 - HYPERLIPIDEMIA, UNSPECIFIED Qualifiers: Hyperlipidemia type: pure hypercholesterolemia Qualified Code(s): E78.00 - Pure hypercholesterolemia, unspecified; E78.0 - Pure hypercholesterolemia (7) Pleural effusion Code(s): J90 - PLEURAL EFFUSION, NOT ELSEWHERE CLASSIFIED Assessment/Plan 1. Acute on chronic II-III NYHA classification diastolic LV failure, resolving 2. CAD angina pectoris 3. HTN 4. DM 5. Hypercholesterolemia 6. Acute on chronic kidney disease resolving 7. Anemia PLAN: 1. Continue Bystolic 10 mg QD 2. Monitor K, currently not on ACEI or ARB 3. Continue IV Lasix with caution and close monitoring of renal function 4. Continue Lipitor 40 mg QHS 5. Add ASA unless it is contraindicated 6. Echocardiography noted Further plans are to follow Joaquin Santa MD
--- NOTE | 2018-08-14 15:48 | ECHO ---
Name: DENITA REECE Exam:Adult Echocardiogram Study Date: 08/14/2018 01:02 PM Age: 78 yrs Reason For Study: chf Height: 62 in Weight: 168 lb BSA: 1.8 m2 MMode/2D Measurements & Calculations IVSd: 1.1 cm Ao root diam: 3.2 cm LVIDd: 4.6 cm LA dimension: 2.8 cm LVIDs: 2.8 cm ACS: 1.5 cm LVPWd: 0.93 cm IVSs: 1.5 cm LVPWs: 1.4 cm EDV(Teich): 97.5 ml ESV(Teich): 30.0 ml Doppler Measurements & Calculations MV E max alfredo: 106.1 cm/sec Ao V2 max: 158.0 cm/sec MV A max alfredo: 102.5 cm/sec Ao max P.0 mmHg MV E/A: 1.0 Ao V2 mean: 109.0 cm/sec Ao mean P.0 mmHg Ao V2 VTI: 38.4 cm MR max alfredo: 447.0 cm/sec TR max alfredo: 313.4 cm/sec MR max P.9 mmHg TR max P.4 mmHg Med Peak E' Alfredo: 3.6 cm/sec Med E/e': 30.4 Lat Peak E' Alfredo: 6.4 cm/sec Lat E/e': 16.8 Left Ventricle Normal LV size with mild global LV dysfuction. EF 48%. Right Ventricle The right ventricle is grossly normal size. Mild pulmonary HTN. PASP 41 mmHg. Atria Normal left and right atrial size and function. Mitral Valve The mitral valve leaflets appear normal. There is no evidence of stenosis, fluttering, or prolapse. Tricuspid Valve The tricuspid valve is normal. There is moderate tricuspid regurgitation. Aortic Valve The aortic valve is normal in structure and function. Pulmonic Valve The pulmonic valve is not well seen, but is grossly normal. Great Vessels The aortic root is not well visualized. Pericardium/Pleura There is no pericardial effusion. Interpretation Summary The right ventricle is grossly normal size. Normal left and right atrial size and function. The mitral valve leaflets appear normal. There is no evidence of stenosis, fluttering, or prolapse. The tricuspid valve is normal. There is moderate tricuspid regurgitation. The aortic valve is normal in structure and function. The aortic root is not well visualized. There is no pericardial effusion. Mild pulmonary HTN. PASP 41 mmHg. MD Hayes Gavin 08/14/2018 03:48 PM
[2018-08-14] MEDS ORDERED: BISMUTH SUBSALICYLATE 262 MG TAB.CHEW PO ONE (15:54)
[2018-08-14 16:06] LABS: ANION GAP 7 MMOL/L (8-16); BLOOD UREA NITROGEN 35 mg/dL (7-18); CALCIUM 8.3 mg/dL (8.5-10.1); CHLORIDE 97 mmol/L (98-107); CO2 38 mmol/L (21-32); CREATININE 1.6 mg/dL (0.55-1.3); GLUCOSE,RANDOM 157 mg/dL (74-106); POTASSIUM 3.8 mmol/L (3.5-5.1); SODIUM 142 mmol/L (136-145)
--- NOTE | 2018-08-14 16:10 | PN ---
Progress Note (short form) - Note Progress Note: Laboratory Tests 08/14/18 14:40 Sodium 142 Potassium 3.8 Chloride 97 L Carbon Dioxide 38 H BUN 35 H Creatinine 1.6 H labs reviewed change lasix to po, will stop IV for now Problem List - Problems (1) Hyperkalemia Code(s): E87.5 - HYPERKALEMIA (2) Diabetes mellitus Code(s): E11.9 - TYPE 2 DIABETES MELLITUS WITHOUT COMPLICATIONS Qualifiers: Diabetes mellitus type: type 2 Diabetes mellitus complication status: with kidney complications Diabetes mellitus complication detail: with other kidney complication (3) HTN (hypertension) Code(s): I10 - ESSENTIAL (PRIMARY) HYPERTENSION Qualifiers: Hypertension type: essential hypertension Qualified Code(s): I10 - Essential (primary) hypertension
[2018-08-14] MEDS: ATORVASTATIN CA 40 MG TABLET (FP) PO SCH (22:38)
[2018-08-14] MEDS: INSULIN (LEVEMIR) 100 UNITS/ML UNITS SQ SCH (22:39)
[2018-08-15] MEDS: HEPARIN NA (PORCINE) 5,000 UNITS/ML 1ML VIAL SQ SCH (05:36)
[2018-08-15] MEDS: INSULIN SLIDING SCALE (NOVOLOG) 1 VIAL SQ SCH ×2 (06:29→12:14)
[2018-08-15 06:43] LABS: HEMATOCRIT 32.4 % (32.4-45.2); HEMOGLOBIN 10.7 GM/dL (10.7-15.3); MCH 29.7 pg (25.7-33.7); MCHC 33.2 g/dl (32.0-36.0); MEAN CELL VOLUME 89.6 fl (80-96); PLATELET COUNT 263 K/MM3 (134-434); RBC 3.61 M/mm3 (3.60-5.2); RDW 14.1 % (11.6-15.6)
[2018-08-15 07:17] LABS: ALBUMIN 2.9 g/dl (3.4-5.0); ALK PHOS 91 U/L (45-117); ANION GAP 5 MMOL/L (8-16); BILIRUBIN,TOTAL 0.4 mg/dL (0.2-1); BLOOD UREA NITROGEN 34 mg/dL (7-18); CALCIUM 8.4 mg/dL (8.5-10.1); CHLORIDE 96 mmol/L (98-107); CO2 39 mmol/L (21-32); CREATININE 1.3 mg/dL (0.55-1.3); GLUCOSE,RANDOM 88 mg/dL (74-106); POTASSIUM 3.4 mmol/L (3.5-5.1); SGOT/AST 17 U/L (15-37); SGPT/ALT 16 U/L (13-61); SODIUM 140 mmol/L (136-145); TOT PROT 6.2 g/dl (6.4-8.2)
[2018-08-15] MEDS: NEBIVOLOL 10 MG TABLET (FP) PO SCH (09:57)
--- NOTE | 2018-08-15 10:39 | PN ---
Progress Note, Physician History of Present Illness: PULMONARY ALERT,NO DISTRESS,OOB-CHAIR,-SOB - Current Medication List Current Medications: Active Medications Atorvastatin Calcium (Lipitor -) 40 mg PO HS [facility] Last Admin: 08/14/18 22:38 Dose: 40 mg Heparin Sodium (Porcine) (Heparin -) 5,000 unit SQ TID [facility] Last Admin: 08/15/18 05:36 Dose: 5,000 unit Insulin Aspart (Novolog Vial Sliding Scale -) 1 vial SQ ACHS [facility]; Protocol Last Admin: 08/15/18 06:29 Dose: Not Given Insulin Detemir (Levemir Vial) 10 units SQ HS [facility] Last Admin: 08/14/18 22:39 Dose: 10 units Nebivolol (Bystolic -) 10 mg PO DAILY [facility] Last Admin: 08/15/18 09:57 Dose: 10 mg - Objective Vital Signs: Vital Signs Temperature 98.4 F 08/15/18 05:40 Pulse Rate 57 L 08/15/18 05:40 Respiratory Rate 20 08/15/18 05:40 Blood Pressure 136/85 08/15/18 05:40 O2 Sat by Pulse Oximetry (%) 97 08/14/18 22:00 Constitutional: Yes: Well Nourished, Calm Eyes: Yes: WNL HENT: Yes: WNL Neck: Yes: WNL Cardiovascular: Yes: Regular Rate and Rhythm, S1, S2 Respiratory: Yes: CTA Bilaterally Gastrointestinal: Yes: Normal Bowel Sounds, Soft Extremities: Yes: WNL Edema: No Labs: CBC, BMP 08/15/18 05:30 08/15/18 05:30 INR, PTT INR 1.12 (0.83-1.09) H 08/11/18 05:30 Assessment/Plan ASSESSMENT/PLAN: HYPOXEMIA CHF Diabetes Hypertension Hyperlipidemia Fatty liver Possible component of hemothorax on the right No PTX HTN Hyperkalemia Lasix as needed Follow H & H Strict I & O O2 as needed OOB to chair Glycemic control f/u chest x-rays DR OTOOLE
--- NOTE | 2018-08-15 11:42 | DS ---
Physical Examination Vital Signs: Vital Signs Temperature 98.4 F 08/15/18 05:40 Pulse Rate 57 L 08/15/18 05:40 Respiratory Rate 20 08/15/18 05:40 Blood Pressure 136/85 08/15/18 05:40 O2 Sat by Pulse Oximetry (%) 97 08/14/18 22:00 Constitutional: Yes: No Distress, Calm Cardiovascular: Yes: Regular Rate and Rhythm. No: JVD Respiratory: Yes: Diminished Gastrointestinal: Yes: Normal Bowel Sounds, Soft. No: Tenderness Edema: No Labs: CBC, BMP 08/15/18 05:30 08/15/18 05:30 Discharge Summary Reason For Visit: PLEURAL EFFUSION Current Active Problems CYNTHIA (acute kidney injury) (Acute) CHF (congestive heart failure) (Acute) Diabetes mellitus (Acute) HTN (hypertension) (Acute) Hyperkalemia (Acute) Hyperlipidemia (Acute) Pleural effusion (Acute) Hospital Course: Pt was admitted for SOB-- found to have B/L pleural effusion, acute on chronic kidney disease Evaluated by Pulmonary, Cardiology and Renal Echo-- mild global LV dysfunction Pt improved after receiving IV Lasix-- she diuresed well Pt better Evaluated by Cardiothoracic surgeon-- no need for thoracocentesis as she improved with lasix Pt needs Oxygen Lisinopril on hold due to acute kidney failure Renal function improving May need to reintroduce ACEI at low dose once renall function is stable She will be dc home on PO lasix, po potassium She will need to follow up with Cardiology and PMD spoke with son in detail and explained the plan Condition: Improved - Instructions Referrals: Joaquin Santa MD [Staff Physician] - Armond Cota MD [Staff Physician] - Disposition: HOME - Home Medications Comprehensive Discharge Medication List: Ambulatory Orders Aspirin 81 mg PO DAILY 08/10/18 Insulin NPH Hum/Reg Insulin Hm [Novolin 70-30 Flexpen] 0 unit SQ ASDIR 08/10/18 Nebivolol HCl [Bystolic] 10 mg PO DAILY 08/10/18 Furosemide [Lasix] 40 mg PO DAILY #30 tablet 08/15/18 Potassium Chloride 20 meq PO DAILY #30 tablet.er 08/15/18
--- NOTE | 2018-08-15 11:57 | PN ---
Progress Note, Physician History of Present Illness: Dyspnea on exertion resolving with diuresis, denies chest pain, awaiting home O2. - Current Medication List Current Medications: Active Medications Atorvastatin Calcium (Lipitor -) 40 mg PO HS [facility] Last Admin: 08/14/18 22:38 Dose: 40 mg Heparin Sodium (Porcine) (Heparin -) 5,000 unit SQ TID [facility] Last Admin: 08/15/18 05:36 Dose: 5,000 unit Insulin Aspart (Novolog Vial Sliding Scale -) 1 vial SQ ACHS [facility]; Protocol Last Admin: 08/15/18 06:29 Dose: Not Given Insulin Detemir (Levemir Vial) 10 units SQ HS [facility] Last Admin: 08/14/18 22:39 Dose: 10 units Nebivolol (Bystolic -) 10 mg PO DAILY [facility] Last Admin: 08/15/18 09:57 Dose: 10 mg Potassium Chloride (K-Dur -) 20 meq PO ONCE ONE Stop: 08/15/18 12:01 - Objective Vital Signs: Vital Signs Temperature 98.4 F 08/15/18 05:40 Pulse Rate 57 L 08/15/18 05:40 Respiratory Rate 20 08/15/18 05:40 Blood Pressure 136/85 08/15/18 05:40 O2 Sat by Pulse Oximetry (%) 97 08/14/18 22:00 Constitutional: Yes: No Distress, Calm Neck: Yes: Supple Cardiovascular: Yes: Regular Rate and Rhythm Respiratory: Yes: Regular, Diminished, On Nasal O2 Gastrointestinal: Yes: Normal Bowel Sounds, Soft Edema: No Labs: CBC, BMP 08/15/18 05:30 08/15/18 05:30 INR, PTT INR 1.12 (0.83-1.09) H 08/11/18 05:30 - ....Imaging EKG: Report Reviewed (Tele: NSR) Problem List - Problems (1) CYNTHIA (acute kidney injury) Code(s): N17.9 - ACUTE KIDNEY FAILURE, UNSPECIFIED (2) CHF (congestive heart failure) Code(s): I50.9 - HEART FAILURE, UNSPECIFIED Qualifiers: Heart failure type: diastolic Heart failure chronicity: acute on chronic Qualified Code(s): I50.33 - Acute on chronic diastolic (congestive) heart failure (3) Diabetes mellitus Code(s): E11.9 - TYPE 2 DIABETES MELLITUS WITHOUT COMPLICATIONS Qualifiers: Diabetes mellitus type: type 2 Diabetes mellitus complication status: with kidney complications Diabetes mellitus complication detail: with other kidney complication (4) HTN (hypertension) Code(s): I10 - ESSENTIAL (PRIMARY) HYPERTENSION Qualifiers: Hypertension type: essential hypertension Qualified Code(s): I10 - Essential (primary) hypertension (5) Hyperkalemia Code(s): E87.5 - HYPERKALEMIA (6) Pleural effusion Code(s): J90 - PLEURAL EFFUSION, NOT ELSEWHERE CLASSIFIED (7) Hyperlipidemia Code(s): E78.5 - HYPERLIPIDEMIA, UNSPECIFIED Qualifiers: Hyperlipidemia type: pure hypercholesterolemia Qualified Code(s): E78.00 - Pure hypercholesterolemia, unspecified; E78.0 - Pure hypercholesterolemia Assessment/Plan 08/14/2018 Normal LV and RV siize and fxn, mod TR, RVSP 41 mmHg 1. Acute on chronic II-III NYHA classification diastolic LV failure, resolving 2. CAD angina pectoris 3. HTN 4. DM 5. Hypercholesterolemia 6. Acute on chronic kidney disease resolving 7. Anemia PLAN: 1. Continue Bystolic 10 mg QD 2. Currently not on ACEI or ARB due to hyperkalemia 3. Change to oral Lasix 40 qd with monitor diuretic response, renal function and electrolytes 4. Continue Lipitor 40 mg QHS 5. Add ASA unless it is contraindicated 6. D/c planning with f/u in cardiology office
[2018-08-15] MEDS ORDERED: POTASSIUM CHLORIDE TABS 20 MEQ TABLET.ER (FP) PO ONE (12:00)
[2018-08-15 12:30] VITALS: PULSE 63
--- NOTE | 2018-08-15 12:55 | PN ---
Progress Note, Physician History of Present Illness: Pt seen and examined at bedside. She is awake and alert. She feels that her breathing is improved however she still requires oxygen. - Current Medication List Current Medications: Active Medications Atorvastatin Calcium (Lipitor -) 40 mg PO HS [facility] Last Admin: 08/14/18 22:38 Dose: 40 mg Furosemide (Lasix -) 40 mg PO DAILY [facility] Heparin Sodium (Porcine) (Heparin -) 5,000 unit SQ TID [facility] Last Admin: 08/15/18 05:36 Dose: 5,000 unit Insulin Aspart (Novolog Vial Sliding Scale -) 1 vial SQ ACHS [facility]; Protocol Last Admin: 08/15/18 12:14 Dose: Not Given Insulin Detemir (Levemir Vial) 10 units SQ HS [facility] Last Admin: 08/14/18 22:39 Dose: 10 units Nebivolol (Bystolic -) 10 mg PO DAILY [facility] Last Admin: 08/15/18 09:57 Dose: 10 mg - Objective Vital Signs: Vital Signs Temperature 98.4 F 08/15/18 05:40 Pulse Rate 63 08/15/18 12:27 Respiratory Rate 20 08/15/18 05:40 Blood Pressure 136/85 08/15/18 05:40 O2 Sat by Pulse Oximetry (%) 97 08/15/18 12:27 Constitutional: Yes: Calm Eyes: Yes: Conjunctiva Clear HENT: Yes: Atraumatic Neck: Yes: Supple Cardiovascular: Yes: S1, S2 Respiratory: Yes: On Nasal O2 Gastrointestinal: Yes: Soft Genitourinary: Yes: WNL Musculoskeletal: Yes: WNL Edema: LLE: Trace, RLE: Trace Neurological: Yes: Oriented Psychiatric: Yes: Oriented Labs: CBC, BMP 08/15/18 05:30 08/15/18 05:30 INR, PTT INR 1.12 (0.83-1.09) H 08/11/18 05:30 Problem List - Problems (1) Hyperkalemia Code(s): E87.5 - HYPERKALEMIA (2) Diabetes mellitus Code(s): E11.9 - TYPE 2 DIABETES MELLITUS WITHOUT COMPLICATIONS Qualifiers: Diabetes mellitus type: type 2 Diabetes mellitus complication status: with kidney complications Diabetes mellitus complication detail: with other kidney complication (3) HTN (hypertension) Code(s): I10 - ESSENTIAL (PRIMARY) HYPERTENSION Qualifiers: Hypertension type: essential hypertension Qualified Code(s): I10 - Essential (primary) hypertension Assessment/Plan Current Medications Generic Name Dose Route Start Last Admin Trade Name Faith PRN Reason Stop Dose Admin Atorvastatin Calcium 40 mg 08/11/18 22:00 08/14/18 22:38 Lipitor - PO 40 mg HS [facility] Administration Furosemide 40 mg 08/15/18 13:00 Lasix - PO DAILY [facility] Heparin Sodium (Porcine) 5,000 unit 08/12/18 06:00 08/15/18 05:36 Heparin - SQ 5,000 unit TID [facility] Administration Insulin Aspart 1 vial 08/11/18 16:30 08/15/18 12:14 Novolog Vial Sliding Scale - SQ Not Given ACHS [facility] Protocol Insulin Detemir 10 units 08/11/18 22:00 08/14/18 22:39 Levemir Vial SQ 10 units HS [facility] Administration Nebivolol 10 mg 08/12/18 10:00 08/15/18 09:57 Bystolic - PO 10 mg DAILY [facility] Administration Impression 1. hyperkalemia 2. 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 pleural effusion 4. htn 5. DM 6. hx fatty liver Plan - agree with PO daily lasix - replace potassium - consider trial of low dose bob once stable but will have to monitor potassium closely - lisinopril on hold - will need outpt follow up
[2018-08-15] MEDS ORDERED: FUROSEMIDE 40 MG TABLET (FP) PO SCH (13:00)
[2018-08-15 14:57] VITALS: BP 143/56; TEMP 97.4
== END 2018-08-15 14:59 | disposition home or self-care (01) | DRG 682 ==
LOC: JER 11:04 → JERBED 18:24 → JICU 19:47 → J4W 08-11 20:51
PROVIDERS: ADMIT Internal Medicine; ATTEND Internal Medicine
DX: N17.9 Acute kidney failure, unspecified (principal); I50.33 Acute on chronic diastolic (congestive) heart failure; I25.110 Atherosclerotic heart disease of native coronary artery with unstable angina pectoris; I13.0 Hypertensive heart and chronic kidney disease with heart failure and stage 1 through stage 4 chronic kidney disease, or unspecified chronic kidney disease; E78.5 Hyperlipidemia, unspecified; I10 Essential (primary) hypertension; E87.5 Hyperkalemia; K76.0 Fatty (change of) liver, not elsewhere classified; D64.9 Anemia, unspecified; E11.22 Type 2 diabetes mellitus with diabetic chronic kidney disease; N18.9 Chronic kidney disease, unspecified
CPT/HCPCS: 36415; 36600; 71045-TC-FY; 71275-TC; 80048; 80053; 80061; 81003; 81015; 82550; 82803; 82962; 83036; 83605; 83721; 83735; 83880; 84100; 84443; 84484; 85025; 85027; 85610; 87040; 87086; 87324; 87449; 87804; 93005; 93010; 93306-TC; 94010; 94761; 97116-GP; 97161-GP; 99284-25; J1644; J7030